=== PATIENT | female | born 1995 | race Hispanic/Latino ===

== ENCOUNTER → 2020-07-26 16:48 | Outpatient (CLI) | payer MEDICAID, SELFPAY ==
[2020-07-26 17:17] LABS: Absolute Lymphocyte Count 2.31 X10^3/uL (0.83-4.51); Absolute Neutrophil Count 7.1 X10^3/uL (2.0-7.7); Basophil# 0.02 X10^3/uL; Basophil% 0.2 % (0-1); Eosinophil# 0.12 X10^3/uL; Eosinophils% 1.2 % (0-5); Hemoglobin 11.1 g/dL (12.0-15.0); Lymphocyte # 2.31 X10^3/ul (4.0); Lymphocyte % 22.4 % (19-41); Mean Corp Hgb Conc 31.7 g/dL (32-36); Mean Corpuscular Hgb 28.3 pg (27.0-32.0); Mean Corpuscular Volume 89.3 fL (81-99); Mean Platelet Vol. 8.6 fl (6.2-12.0); Monocyte% 6.8 % (0-10); NRBC Flagged by Analyzer 0 % (0-5); Neutrophil # 7.13 X10^3/uL (2.7-7.7); Neutrophil % 69.1 % (47-70); Platelet Count 360 K/mm3 (150-450); RBC Distribution Width CV 13.1 % (11.6-14.6); RBC Distribution Width SD 42.5 fl (35.1-43.9); Red Blood Count 3.92 M/mm3 (4.2-5.4); White Blood Count 10.3 K/mm3 (4.4-11.0)
[2020-07-27 13:09] LABS: HIV - WCH Non-Reactive (Nonreactive); Hepatitis B Surface Antigen Non-Reactive (Nonreactive); Hepatitis C Antibody Non-Reactive (Nonreactive); Rubella IgG Reactive (Nonreactive)
[2020-07-29 02:34] LABS: Prenatal RPR NONREACTIVE (NONREACTIVE)
== END ==
PROVIDERS: Visit Provider Obstetrics & Gynecology
DX: Z34.82 Encounter for supervision of other normal pregnancy, second trimester (principal)
CPT/HCPCS: 36415; 85025; 86703; 86762; 86803; 87086; 87088; 87340

== ENCOUNTER → 2020-10-21 | Outpatient (CLI) | payer MEDICAID, SELFPAY ==
[2020-10-21 13:45] LABS: Glucose Challenge Gest 1H 50g 89 mg/dL (70-140)
[2020-10-21 13:47] LABS: Hematocrit 32.3 % (37-47); Hemoglobin 10.5 g/dL (12.0-15.0); Mean Corp Hgb Conc 32.5 g/dL (32-36); Mean Corpuscular Hgb 29.7 pg (27.0-32.0); Mean Corpuscular Volume 91.2 fL (81-99); Mean Platelet Vol. 9.1 fl (6.2-12.0); Platelet Count 372 K/mm3 (150-450); RBC Distribution Width CV 13.2 % (11.6-14.6); RBC Distribution Width SD 44.5 fl (35.1-43.9); Red Blood Count 3.54 M/mm3 (4.2-5.4); White Blood Count 10.4 K/mm3 (4.4-11.0)
== END | disposition home or self-care (01) ==
LOC: WOBLAB 11:13
PROVIDERS: Visit Provider Obstetrics & Gynecology
DX: Z34.82 Encounter for supervision of other normal pregnancy, second trimester (principal)
CPT/HCPCS: 36415; 82950; 85027

== ENCOUNTER → 2020-12-30 14:25 | Outpatient (CLI) | payer MEDICAID, SELFPAY ==
[2021-01-03 20:08] LABS: Chlamydia By Nucleic Acid AMP Positive (Negative)
[2021-01-03 20:43] LABS: Gonococcus By Nucleic Acid AMP Negative (Negative)
[2021-01-04 18:52] LABS: HPV Reflexed? NOT INDICATED
== END ==
PROVIDERS: Visit Provider Obstetrics & Gynecology
DX: Z34.83 Encounter for supervision of other normal pregnancy, third trimester (principal); Z36.85 Encounter for antenatal screening for Streptococcus B
CPT/HCPCS: 87081; 87491; 87591; 88175; G0145

== ENCOUNTER 2021-01-20 15:55 | Inpatient (IN) | payer MEDICAID, SELFPAY ==
[2021-01-20] VITALS (12 sets, daily range): BP systolic 109–160; BP diastolic 55–74; PULSE 87–97; TEMP 36.4–36.8; O2SAT 100; BMI 33.0
[2021-01-20] MEDS: Lactated Ringers 1,000 ML 50 ML IV (16:25)
[2021-01-20 16:45] LABS: Absolute Lymphocyte Count 1.55 X10^3/uL (0.83-4.51); Absolute Neutrophil Count 6.5 X10^3/uL (2.0-7.7); Basophil# 0.01 X10^3/uL; Basophil% 0.1 % (0-1); Eosinophil# 0.06 X10^3/uL; Eosinophils% 0.7 % (0-5); Hematocrit 34.5 % (37-47); Hemoglobin 11.2 g/dL (12.0-15.0); Lymphocyte # 1.55 X10^3/ul (0.83-4.51); Lymphocyte % 17.2 % (19-41); Mean Corp Hgb Conc 32.5 g/dL (32-36); Mean Corpuscular Hgb 29.6 pg (27.0-32.0); Mean Corpuscular Volume 91.3 fL (81-99); Monocyte# 0.87 X10^3/uL; Monocyte% 9.6 % (0-10); NRBC Flagged by Analyzer 0 % (0-5); Neutrophil # 6.45 X10^3/uL (2.7-7.7); Neutrophil % 71.4 % (47-70); Platelet Count 241 K/mm3 (150-450); Red Blood Count 3.78 M/mm3 (4.2-5.4)
[2021-01-20 16:52] LABS: Amphetamine Urine VISTA NEGATIVE (<1000 ng/mL); Barbiturate Urine VISTA NEGATIVE (< 200 ng/mL); Benzodiazepine Urine VISTA NEGATIVE (< 200 ng/mL); Cocaine Urine VISTA NEGATIVE (< 300 ng/mL); Ecstacy Urine VISTA NEGATIVE (< 500 ng/mL); Methadone Urine VISTA NEGATIVE (< 300 ng/mL); PCP Urine VISTA NEGATIVE (< 25 ng/mL); THC Urine VISTA NEGATIVE (< 50 ng/mL); Vista UDS pH Range 6
[2021-01-20] MEDS: Oxytocin 30 units/NS 500 ml 30 UNITS/500 ML IV.SOLN IV (17:16)
--- NOTE | 2021-01-20 19:11 | PCM.HP.BLA ---
History and Physical Date of Admission: 01/20/21 Chief complaint: Induction of labor at term History of present illness: 25-year-old G4, P1 at 39 weeks and 0 days with AVA: 01/27/2021 by LMP arrives for induction of labor at term. Denies headache, chest pain, shortness of breath, nausea vomiting, right upper quadrant pain. Patient states good movement Obstetric history: G1: SAB 10 weeks G2: 40 weeks G3: SAB G4: Current Past medical history: Asthma Medications: vitamin Past surgical history: [place] tooth extraction Allergies: Penicillin Social history: Former smoker, denies alcohol or drug use Family history: Denies history DVT or PE Review of systems: Besides above pertinent positives a full review of systems was performed and was found to be negative Physical exam: Vital signs: Blood pressure 132/67 pulse 93 temperature 98.1 General: Normal-appearing no acute distress HEENT: Normocephalic atraumatic no cervical of adenopathy Cardiac/respiratory: No use of accessory muscles, nonlabored breathing Abdomen: Soft, nontender, gravid Extremities: No peripheral edema normal peripheral pulses Psych: Normal affect normal demeanor nonpressured speech Labs: White blood cell count 9 hemoglobin 11.2 hematocrit 34.5% platelets 241. Blood type B+ Assessment plan: 25-year-old G4, P1 at 39 weeks and 0 days for induction of labor at term Admit labor and delivery CEFM GBS negative Pitocin induction for AROM Anesthesia to see
[2021-01-20 21:46] LABS: Chlamydia Trachomatis by PCR Negative (Negative); Probe Check PASS; Specimen Processing Control PASS
[2021-01-20 21:47] LABS: Sample Adequacy Control PASS
--- NOTE | 2021-01-20 22:35 | PN.OBGYN_ITS ---
Subjective Subjective Patient resting in bed, feeling strong contractions going natural Objective Data Objective Data Vital Signs: Vital Signs Temp Pulse BP Pulse Ox 98.2 F 90 121/74 H 100 01/20/21 21:51 01/20/21 21:54 01/20/21 21:54 01/20/21 21:50 Weight: 207 lb 10.807 oz Body Mass Index (BMI) 33.0 Intake & Output: Intake and Output for Last 24 Hours 01/18/21 01/19/21 01/20/21 23:59 23:59 23:59 Intake Total 335.77 / 335.77 Output Total 650 / 650 Balance -314.23 / -314.23 Lab / Micro Data Result Diagrams: 01/20/21 16:25 Labs: Laboratory Results - last 24 hr 01/20/21 01/20/21 01/20/21 16:25 16:25 16:30 WBC 9.0 RBC 3.78 L Hgb 11.2 L Hct 34.5 L MCV 91.3 MCH 29.6 MCHC 32.5 RDW Std Deviation 47.0 H RDW Coeff of Kate 14.0 Plt Count 241 MPV 9.0 Immature Gran % (Auto) 1.000 H Neut % (Auto) 71.4 H Lymph % (Auto) 17.2 L [place] % (Auto) 9.6 Eos % (Auto) 0.7 Baso % (Auto) 0.1 Absolute Neuts (auto) 6.5 Absolute Lymphs (auto) 1.55 Nucleated RBC % 0 Urine Opiates Screen NEGATIVE Urine Methadone Screen NEGATIVE Ur Barbiturates Screen NEGATIVE Ur Phencyclidine Scrn NEGATIVE Ur Amphetamines Screen NEGATIVE U Methamphetamin-MDMA NEGATIVE U Benzodiazepines Scrn NEGATIVE Urine Cocaine Screen NEGATIVE U Cannabinoids Screen NEGATIVE Ur Drug Screen Comment Chlam trachomat DNA PCR Blood Type B POSITIVE Antibody Screen NEGATIVE 01/20/21 19:30 WBC RBC Hgb Hct MCV MCH MCHC RDW Std Deviation RDW Coeff of Kate Plt Count MPV Immature Gran % (Auto) Neut % (Auto) Lymph % (Auto) [place] % (Auto) Eos % (Auto) Baso % (Auto) Absolute Neuts (auto) Absolute Lymphs (auto) Nucleated RBC % Urine Opiates Screen Urine Methadone Screen Ur Barbiturates Screen Ur Phencyclidine Scrn Ur Amphetamines Screen U Methamphetamin-MDMA U Benzodiazepines Scrn Urine Cocaine Screen U Cannabinoids Screen Ur Drug Screen Comment Chlam trachomat DNA PCR Negative Blood Type Antibody Screen Micro: Microbiology 01/20/21 16:20 Mucosa - Nose SARS-CoV-2 Antigen (Rapid) - Final Physical Exam Const alert, oriented x3 and no apparent distress HEENT normocephalic Head and Scalp: atraumatic Neck full ROM Resp normal respiratory effort, no retractions and no use of accessory muscles Narrative: Cervical exam: 4/80/-2. AROM clear fluid Extremity normal to inspection, full ROM and no clubbing, cyanosis or edema Skin no rashes or lesions noted Psych mental status grossly normal, affect normal, speech normal and activity/motor behavior normal NST FHR Rate Baby A Baseline: 130 Variability:: Moderate Accelerations:: 15 x 15 Decelerations:: None FHR Category:: Category I Uterine Activity:: Every 2 minutes Assessment & Plan (1) : PLAN: Patient feeling contractions. Seen and examined, AROM clear fluid. We will continue current management
[2021-01-20] MEDS: Lactated Ringers 1,000 ML 200 ML IV (23:20)
[2021-01-21] VITALS (47 sets, daily range): BP systolic 97–150; BP diastolic 50–81; PULSE 80–99; RESP 14–18; TEMP 36.3–37.1; O2SAT 80–100
[2021-01-21] MEDS: Lactated Ringers 500 ML 999 ML IV (01:59)
[2021-01-21] MEDS: fentaNYL-bupivacaine (epidural) 100 ML BAG EPIDURAL (02:50)
[2021-01-21] MEDS: Lactated Ringers 1,000 ML 200 ML IV (04:51)
[2021-01-21] MEDS: Levonorgestrel IUD (Liletta) 1 EACH INTRA-UTER (06:10)
[2021-01-21] MEDS: Oxytocin 30 units/NS 500 ml 30 UNITS/500 ML IV.SOLN 334 UNITS IV (06:10)
--- NOTE | 2021-01-21 06:32 | EX.PCM.OBRPT ---
Vaginal Delivery Findings Description of Procedure: Procedure: Normal spontaneous vaginal delivery, immediate IUD placement Normal spontaneous vaginal delivery of a viable female , vertex EVAN. Head and shoulders delivered with ease. Cord cut and clamped. Baby handed off to nursing. Placenta delivered via cord traction and fundal massage. Immediately after the placenta Liletta IUD was placed at the fundus. No lacerations noted. EBL 300 cc. Apgars 8/9
--- NOTE | 2021-01-21 08:21 | NURSING ---
0820 Steele Cath removed. emptied for 600ml, patient tolerated well
--- NOTE | 2021-01-21 12:07 | NURSING ---
Student charting reviewed by MAU Galloway,AU instructor.
--- NOTE | 2021-01-21 13:55 | NURSING ---
Reviewed and agree withAU student charting-Laverne RN, AU instructor
[2021-01-21] MEDS: Acetaminophen 500 MG Tablet 1000 MG PO ×2 (14:04→20:50)
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
[2021-01-21] MEDS: Ibuprofen 600 MG Tablet PO (17:11)
[2021-01-21] MEDS: Senna/Docusate Sodium 1 Tablet PO (20:50)
[2021-01-22] MEDS: Ibuprofen 600 MG Tablet PO ×2 (03:29→14:00)
[2021-01-22 03:30] VITALS: BP 114/63; PULSE 73; RESP 18; TEMP 36.8; O2SAT 97
[2021-01-22 08:45] VITALS: BP 113/63; PULSE 79; RESP 16; TEMP 36.8; O2SAT 98
--- NOTE | 2021-01-22 09:14 | PCM.PN.OB ---
Subjective Subjective No issues overnight. Out of bed, ambulating, voiding without difficulty. Denies heavy lochia. She is nursing. She is concerned about infant bilirubin level. Repeat level due this afternoon. Objective Data Objective Data Vital Signs: Vital Signs Temp Pulse Resp BP Pulse Ox 98.3 F 73 18 114/63 97 01/22/21 03:30 01/22/21 03:30 01/22/21 03:30 01/22/21 03:30 01/22/21 03:30 Oxygen Delivery Method Room Air Weight: 94.2 kg Body Mass Index (BMI) 33.0 Intake & Output: Intake and Output for Last 24 Hours 01/20/21 01/21/21 01/22/21 23:59 23:59 23:59 Intake Total 969.10 / 969.10 2344.50 / 2344.50 Output Total 650 / 650 800 / 800 Balance 319.10 / 319.10 1544.50 / 1544.50 Lab / Micro Data Result Diagrams: 01/20/21 16:25 Micro: Microbiology 01/20/21 16:20 Mucosa - Nose SARS-CoV-2 Antigen (Rapid) - Final Physical Exam Const alert, oriented x3 and no apparent distress Resp normal respiratory effort, normal air movement and clear to auscultation bilaterally Cardio regular rate, regular rhythm, S1 normal heart sound and S2 normal heart sound GI normal to inspection, nondistended, normoactive bowel sounds, soft to palpation, non-tender and non-distended Manual OB Exam: other lochia scant Uterus Palpation: uterus fundus firm Extremity no calf tenderness Assessment & Plan (1) (spontaneous vaginal delivery): PLAN: Rh positive Routine care Consider d/c later today pending bilirubin levels
--- NOTE | 2021-01-22 09:21 | PCM.DC ---
Discharge Instructions Diet Discharge Diet: No restrictions Activity May resume sexual activity in: 4-6 weeks Dressing / Incision Call your doctor if you observe: Fever of 101 or Higher, Using more than one pad per hour, Shortness of breath, Chest pain, Calf discomfort, Uncontrolled pain and - (Persistent or severe headache) Follow Up Care Please Follow Up With: Justa Merlos MD When: 3 weeks for telehealth follow up 6 weeks for visit Test Results: Test results from this visit will be discussed in further detail at your follow-up appointment, if applicable. Discharge Plan Admission Admit Date/Time: 01/20/21 15:55 Primary Reason for Your Visit: Vaginal delivery Attending Provider: Jeanne Feldamn Primary Care Provider: Care Physician,No Primary Instructions Patient Instructions: After a Vaginal Discharge Orders/Prescriptions Prescriptions: New ibuprofen 600 mg tablet 600 mg PO Q8H PRN (Reason: pain) Qty: 30 RF: 0 Continued Prena-Tab 65 mg iron- 1 mg Tablet 1 tab PO DAILY RF: 0 Discontinued ferrous sulfate [Iron (ferrous sulfate)] 325 mg (65 mg iron) Tablet 65 mg PO DAILY RF: 0 Referrals / Follow Up: Michoacano Feldman MD [STAFF PHYSICIAN] - Care Physician,No Primary [Primary Care Provider] - Disposition Disposition (needs filled in before D/C Order can be placed): Home, self care
[2021-01-22 14:00] VITALS: BP 106/67; PULSE 74; RESP 14; TEMP 36.6; O2SAT 97
== END 2021-01-22 15:45 | disposition home or self-care (01) | DRG 560 ==
PROVIDERS: Obstetrics & Gynecology; Admitting Provider Student in an Organized Health Care Education/Training Program; Referring Provider Student in an Organized Health Care Education/Training Program; Visit Provider Student in an Organized Health Care Education/Training Program
DX: O99.52 Diseases of the respiratory system complicating childbirth (principal); J45.909 Unspecified asthma, uncomplicated; Z20.822 Contact with and (suspected) exposure to COVID-19; Z30.430 Encounter for insertion of intrauterine contraceptive device; Z3A.39 39 weeks gestation of pregnancy; Z37.0 Single live birth; Z87.891 Personal history of nicotine dependence
CPT/HCPCS: 59025; 59050; 80307; 85025; 86850; 86900; 86901; 87426; 87491; 99218; J7120; G0378

== ENCOUNTER 2021-11-11 11:13 | Outpatient (CLI) | payer MEDICAID, SELFPAY ==
[2021-11-11 13:47] LABS: Estradiol 87.6 pg/mL; Luteinizing Hormone 9.7 mIU/mL; Prolactin 3.1 ng/mL; T4 Free Direct 0.88 ng/dL (0.76-1.46); Thyroid Stim Hormone (TSH) 1.38 uIU/mL (0.358-3.74)
[2021-11-14 18:07] LABS: Chlamydia By Nucleic Acid AMP Negative (Negative)
[2021-11-14 21:22] LABS: Gonococcus By Nucleic Acid AMP Negative (Negative)
== END 2021-11-11 23:59 | disposition home or self-care (01) ==
LOC: WOBLAB 11:14
PROVIDERS: Visit Provider Obstetrics & Gynecology
DX: Z11.3 Encounter for screening for infections with a predominantly sexual mode of transmission (principal); N93.9 Abnormal uterine and vaginal bleeding, unspecified; L68.0 Hirsutism
CPT/HCPCS: 36415; 82670; 83001; 83002; 84146; 84402; 84439; 84443; 87086; 87088; 87491; 87591

== ENCOUNTER → 2022-12-01 | Outpatient (CLI) | payer MEDICAID, SELFPAY ==
[2022-12-01 16:36] LABS: Absolute Lymphocyte Count 2.61 X10^3/uL (0.83-4.51); Absolute Neutrophil Count 4.5 X10^3/uL (2.0-7.7); Basophil# 0.02 X10^3/uL; Basophil% 0.2 % (0-1); Eosinophil# 0.22 X10^3/uL; Eosinophils% 2.7 % (0-5); Hematocrit 37.2 % (37-47); Hemoglobin 12.1 g/dL (12.0-15.0); Lymphocyte # 2.61 X10^3/ul (0.83-4.51); Lymphocyte % 32.5 % (19-41); Mean Corp Hgb Conc 32.5 g/dL (32-36); Mean Corpuscular Hgb 28.9 pg (27.0-32.0); Mean Platelet Vol. 8.4 fl (6.2-12.0); Monocyte# 0.65 X10^3/uL; Monocyte% 8.1 % (0-10); NRBC Flagged by Analyzer 0 % (0-5); Neutrophil # 4.49 X10^3/uL (2.7-7.7); Neutrophil % 56.1 % (47-70); Platelet Count 394 K/mm3 (150-450); RBC Distribution Width CV 13.9 % (11.6-14.6); RBC Distribution Width SD 45.1 fl (35.1-43.9); Red Blood Count 4.18 M/mm3 (4.2-5.4)
[2022-12-01 17:40] LABS: HIV - WCH Non-Reactive (Nonreactive); Hepatitis B Surface Antigen Non-Reactive (Nonreactive); Hepatitis C Antibody Non-Reactive (Nonreactive); Rubella IgG Reactive (Nonreactive); Syphilis Antibodies Non-reactive
[2022-12-03 08:31] LABS: V-Zoster IgG (Immunity) < 135 index (Immune >165)
[2022-12-08 20:37] LABS: HPV Reflexed? NOT INDICATED
== END | disposition home or self-care (01) ==
PROVIDERS: Visit Provider Obstetrics & Gynecology
DX: Z34.81 Encounter for supervision of other normal pregnancy, first trimester (principal)
CPT/HCPCS: 36415; 85025; 86703; 86762; 86780; 86787; 86803; 87086; 87088; 87340; 88175; G0145

== ENCOUNTER → 2023-04-06 | Outpatient (CLI) | payer MEDICAID, SELFPAY ==
[2023-04-06 11:00] LABS: Absolute Lymphocyte Count 1.89 X10^3/uL (0.83-4.51); Absolute Neutrophil Count 7.4 X10^3/uL (2.0-7.7); Basophil# 0.02 X10^3/uL; Basophil% 0.2 % (0-1); Eosinophil# 0.15 X10^3/uL; Eosinophils% 1.5 % (0-5); Hematocrit 34.5 % (37-47); Hemoglobin 10.9 g/dL (12.0-15.0); Lymphocyte # 1.89 X10^3/ul (0.83-4.51); Lymphocyte % 18.6 % (19-41); Mean Corp Hgb Conc 31.6 g/dL (32-36); Mean Corpuscular Hgb 29.2 pg (27.0-32.0); Mean Corpuscular Volume 92.5 fL (81-99); Mean Platelet Vol. 8.9 fl (6.2-12.0); Monocyte# 0.64 X10^3/uL; Monocyte% 6.3 % (0-10); NRBC Flagged by Analyzer 0 % (0-5); Neutrophil % 72.7 % (47-70); Platelet Count 310 K/mm3 (150-450); RBC Distribution Width CV 13.4 % (11.6-14.6); RBC Distribution Width SD 45.5 fl (35.1-43.9); Red Blood Count 3.73 M/mm3 (4.2-5.4); White Blood Count 10.2 K/mm3 (4.4-11.0)
[2023-04-06 11:07] LABS: Glucose Challenge Gest 1H 50g 84 mg/dL (70-140)
[2023-04-06 11:31] LABS: Syphilis Antibodies Non-reactive
== END | disposition home or self-care (01) ==
LOC: WOBLAB 10:19
PROVIDERS: Visit Provider Obstetrics & Gynecology
DX: Z34.82 Encounter for supervision of other normal pregnancy, second trimester (principal); Z3A.00 Weeks of gestation of pregnancy not specified
CPT/HCPCS: 36415; 82950; 85025; 86780

== ENCOUNTER 2023-10-19 18:03 | Emergency (ER) | payer MEDICAID, SELFPAY ==
[2023-10-19 18:04] VITALS: BP 130/82; PULSE 83; RESP 16; TEMP 36.1; O2SAT 98; BMI 35.0
--- OUTSIDE RECORDS SUMMARY | 2023-10-19 19:10 | XMS RPT_ITS | CCD ---
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 delivery, the amount and appearance of lochia is often similar to a menstrual period. ?Over the next few weeks, it will gradually decrease to a dry, yellow-brown discharge. ?For most women, lochia stops completely by 4 6 weeks after delivery. Vaginal bleeding can vary from woman to woman. Change your sanitary pads frequently. Watch for any changes in your flow, such as: ?A sudden increase in volume. ?A change in color. ?Large blood clots. If you pass a blood clot from your vagina, save it and call your health care provider to discuss. Do not flush blood clots down the toilet before talking with your health care provider. Do not use tampons or douches until your health care provider says this is safe. If you are not , your period should return 6 8 weeks after delivery. If you are feeding your child breast milk only (exclusive ), your period may not return until you stop . Perineal care Keep the area between the vagina and the anus (perineum) clean and dry as told by your health care provider. Use medicated pads and pain-relieving sprays and creams as directed. If you had a cut in the perineum (episiotomy) or a tear in the vagina, check the area for signs of infection until you are healed. Check for: ?More redness, swelling, or pain. ?Fluid or blood coming from the cut or tear. ?Warmth. ?Pus or a bad smell. You may be given a squirt bottle to use instead of wiping to clean the perineum area after you go to the bathroom. As you start healing, you may use the squirt bottle before wiping yourself. Make sure to wipe gently. To relieve pain caused by an episiotomy, a tear in the vagina, or swollen veins in the anus (hemorrhoids), try taking a warm sitz bath 2 3 times a day. A sitz bath is a warm water bath that is taken while you are sitting down. The water should only come up to your hips and should cover your buttocks. Breast care Within the first few days after delivery, your breasts may feel heavy, full, and uncomfortable (breast engorgement). Milk may also leak from your breasts. Your health care provider can suggest ways to help relieve the discomfort. Breast engorgement should go away within a few days. If you are : ?Wear a bra that supports your breasts and fits you well. ?Keep your nipples clean and dry. Apply creams and ointments as told by your health care provider. ?You may need to use breast pads to absorb milk that leaks from your breasts. ?You may have uterine contractions every time you breastfeed for up to several weeks after delivery. Uterine contractions help your uterus return to its normal size. ?If you have any problems with , work with your health care provider or c consultant. If you are not : ?Avoid touching your breasts a lot. Doing this can make your breasts produce more milk. ?Wear a good-fitting bra and use cold packs to help with swelling. ?Do not squeeze out (express) milk. This causes you to make more milk. Intimacy and sexuality Ask your health care provider when you can engage in sexual activity. This may depend on: ?Your risk of infection. ?How fast you are healing. ?Your comfort and desire to engage in sexual activity. You are able to get after delivery, even if you have not had your period. If desired, talk with your health care provider about methods of control (contraception). Medicines Take rayd-ehr-uaxubmz and prescription medicines only as told by your health care provider. If you were prescribed an antibiotic medicine, take it as told by your health care provider. Do not stop taking the antibiotic even if you start to feel better. Activity Gradually return to your normal activities as told by your health care provider. Ask your health care provider what activities are safe for you. Rest as much as possible. Try to rest or take a nap while your baby is sleeping. Eating and drinking Drink enough fluid to keep your urine pale yellow. Eat high-fiber foods every day. These may help prevent or relieve constipation. High-fiber foods include: ?Whole grain cereals and breads. ?Brown rice. ?Beans. ?Fresh fruits and vegetables. Do not try to lose weight quickly by cutting back on calories. Take your vitamins until your checkup or until your health care provider tells you it is okay to stop. Lifestyle Do not use any products that contain nicotine or tobacco, such as cigarettes and e-cigarettes. If you need help quitting, ask your health care provider. Do not drink alcohol, especially if you are . General instructions Keep all follow-up visits for you and your baby as told by your health care provider. Most women visit their health care provider for a checkup within the first 3 6 weeks after delivery. Contact a health care provider if: You feel unable to cope with the changes that your child brings to your life, and these feelings do not go away. You feel unusually sad or worried. Your breasts become red, painful, or hard. You have a fever. You have trouble holding urine or keeping urine from leaking. You have little or no interest in activities you used to enjoy. You have not breastfed at all and you have not had a menstrual period for 12 weeks after delivery. You have stopped and you have not had a menstrual period for 12 weeks after you stopped . You have questions about caring for yourself or your baby. You pass a blood clot from your vagina. Get help right away if: You have chest pain. You have difficulty breathing. You have sudden, severe leg pain. You have severe pain or cramping in your lower abdomen. You bleed from your vagina so much that you fill more than one sanitary pad in one hour. Bleeding should not be heavier than your heaviest period. You develop a severe headache. You faint. You have blurred vision or spots in your vision. You have bad-smelling vaginal discharge. You have thoughts about hurting yourself or your baby. If you ever feel like you may hurt yourself or others, or have thoughts about taking your own life, get help right away. You can go to the nearest emergency department or call: Your local emergency services (911 in the [place] A suicide crisis helpline, such as the National Suicide Prevention Lifeline at . This is open 24 hours a day. Summary The period of time right after you deliver your up to 6 12 weeks after delivery is called the period. Gradually return to your normal activities as told by your health care provider. Keep all follow-up visits for you and your baby as told by your health care provider. This information is not intended to replace advice given to you by your health care provider. Make sure you discuss any questions you have with your health care provider. Document Released: 06/02/2008 Document Revised: 08/09/2018 Document Reviewed: 05/20/2018 [employer] Patient Education 2020 [employer]. Follow Up Care 07/26/2023 08:13:10 With:TAWANDA CALLAHAN MD Address: [address] [place] [address] [facility] [phone]- [phone] When: Unknown Comments:Please schedule a followup next week for blood pressure check and checkup with me in 3 weeks [facility] Evaluation + Plan note 07-26-2023 Note Date & Type Note Facility [facility] ADMISSION HISTORY AN D PHYSICIAL CHIEF COMPLAINT: Regular painful contractions HISTORY OF PRESENT ILLNESS: 3 para 2 at 40 weeks 2 days estimated gestational age with painful regular contractions since this morning. course only remarkable for moderately elevated blood pressures over the last 2 weeks but with normal PIH labs. No signs of preeclampsia. No signs of SROM or bleeding. GBS screening was negative REVIEW OF SYSTEMS: Regular painful contractions ACTIVE PROBLEMS: (4) Body mass index 30+ - obesity ([id number]) Encounter for supervision of normal in multigravida in third trimester ([id number]) ([id number]) ([id number]) MEDICATIONS: Active Inpt Meds: None Active PRN Meds: Lactated Ringers Infusion (LR 500 mL Bolus) Start: 07/26/23 8:35:00 EST, Dose = 500 mL, Soln, IV Bolus, AsDirected, PRN, Other (see order comments), Rate: 999 mL/hr, hour(s), 07/26/23 8:35:00 EST carboprost (Hemabate) Start: 07/26/23 8:35:00 EST, Dose = 250 mcg, = 1 mL, Intramuscular, Once, PRN, Other (see order comments), 07/26/23 8:35:00 EST citric acid-sodium citrate (Bicitra) Start: 07/26/23 8:35:00 EST, Dose = 30 mL, Soln, Oral, AsDirected, PRN, Gastric Upset, 07/26/23 8:35:00 EST lidocaine (Xylocaine HCl 1% injectable solution) Start: 07/26/23 8:35:00 EST, Dose = 20 mg, = 2 mL, Perineum, AsDirected, PRN, to perineal sutures, 1 dose(s), Stop: Limited # of times, 07/26/23 8:35:00 EST methylergonovine (Methergine) Start: 07/26/23 8:35:00 EST, Dose = 0.2 mg, = 1 mL, Intramuscular, Once, PRN, Other (see order comments), 07/26/23 8:35:00 EST miSOPROStol (Cytotec) Start: 07/26/23 8:35:00 EST, Dose = 1,000 mcg, = 5 tab(s), Rectal, Once, PRN, Other (see order comments), 0, 07/26/23:35:00 EST ondansetron (Zofran) Start: 07/26/23 8:35:00 EST, Dose = 4 mg, = 2 mL, IV Push, q4h, PRN, Nausea, 07/26/23 8:35:00 EST oxytocin (Pitocin) Start: 07/26/23 8:35:00 EST, Dose = 20 unit(s), = 2 mL, Intramuscular, Once, PRN, Other (see order comments), 07/26/23 8:35:00 EST terbutaline (Brethine) Start: 07/26/23 8:35:00 EST, Dose = 0.25 mg, = 0.25 mL, Subcutaneous, AsDirected, PRN, Other (see order comments), 07/26/23 8:35:00 EST tranexamic acid (tranexamic acid 1 g / 100 mL 0.7% NaCl PMX) Start: 07/26/23 8:35:00 EST, Dose = 1 gram(s), = 100 mL, IV Piggyback, AsDirected, PRN, Other (see order comments), Rate: 300 mL/hr, Infuse over: 20 minute(s), 0, 07/26/23 8:35:00 EST One Time Meds: None Active IV Meds: Lactated Ringers Infusion 1,000 mL (LR 1,000 mL) Start: 07/26/23 8:35:00 EST, Rate: 125 mL/hr, 07/26/23 8:35:00 EST oxytocin 20 unit(s) + LR Premix Diluent 1,000 mL (Oxytocin for IV (mL/hr) 20 unit(s) + LR Premix Diluent 1,000 mL) Start: 07/26/23 8:35:00 EST, Rate: 999 mL/hr, 07/26/23 8:35:00 EST ALLERGIES: (2) Kiwi fruit penicillin FAMILY HISTORY: Not significant for this admission SOCIAL HISTORY: Non-smoker no toxic habits no alcohol use stable home PHYSICAL EXAM: VITALS: ZlnlokSvbtKJVzqxjZXZmG9HUY9QvgmPq(kg) 07/26 08:31----75------07/26108.0 07/26 08:27----77------ 07/26 08:13----66------ 24 Hr Tmax: No Data Available 36 Hr Tmax: No Data Available Vital Signs are the last 5 in the past 48 hours. Weights display the last 5 within 7 days. Initial Wt: 07/26 108.0 kg 238 lb Current Wt: 07/26 108.0 kg 238 lb GENERAL: Appears well except uncomfortable with contractions HEENT: Normocephalic CARDIOVASCULAR: Regular rate and rhythm blood pressure elevated on admission 170/89 now currently in the 140s over 80s RESPIRATORY: Clear bilaterally ABDOMEN: Gravid consistent with dating vertex presentation CERVIX: 5 cm dilated 90% effaced 0 station EXREMETIES: Mild lower extremity edema NEUROLOGICAL: Intact PSYCHIATRIC: No signs of acute depression or anxiety LABS: 36hr Labs 07/26 839 Group B Strep,See Flowsheet Group B Strep Date Performed1:[id number]:0:0 07/26 836 Creatinine Lvl (s)0.74 Albumin Level3.0L Alk Tjee292 Bili Total1.0 BUN12 Calcium Lvl9.8 Scnzkznw212 PG065H Glucose Level85 Potassium Level4.0 Sodium Zibxq852A Total Protein7.2 Uric Acid Lvl6.8H BUN/Creatinine Ratio16 Globulin4.2 A/G Ratio0.7L AST/SGOT21 ALT/SGPT21 Electrolyte Mcgmfpm93.0 GFR Non- Svkgmapo54 GFR Plmuntjf120 Hct38.7 Hgb12.7 MCH28.8 MCHC32.8L MCV87.9 MPV7.8 Zfagwawn044 RBC4.41 RDW13.9 WBC17.0H Lymphocyte %11.9 Monocyte %4.7 Neutrophil %82.9H Eosinophil %0.3 Basophil %0.2 Neutrophil, Qexpcbcj66.1H Lymphocyte, Absolute2.0 Monocyte, Absolute0.8 Eosinophil, Absolute0.1 Basophil, Absolute0.0 DIAGNOSTICS: heart rate tracing category 1. Regular contractions on toco monitor IMPRESSION: Active labor at term with modestly elevated blood pressures PLAN: PIH labs were sent. Anesthesia per patient request. Would not recommend tub secondary to elevated blood pressures. Expect . [facility] Clinical Note 07-26-2023 Note Date & Type Note Facility 07-26-2023 [facility] ADMISSION HISTORY AND PHYSICIAL CHIEF COMPLAINT: Regular painful contractions HISTORY OF PRESENT ILLNESS: 3 para 2 at 40 weeks 2 days estimated gestational age with painful regular contractions since this morning. course only remarkable for moderately elevated blood pressures over the last 2 weeks but with normal PIH labs. No signs of preeclampsia. No signs of SROM or bleeding. GBS screening was negative REVIEW OF SYSTEMS: Regular painful contractions ACTIVE PROBLEMS: (4) Body mass index 30+ - obesity ([id number]) Encounter for supervision of normal in multigravida in third trimester ([id number]) ([id number]) ([id number]) MEDICATIONS: Active Inpt Meds: None Active PRN Meds: Lactated Ringers Infusion (LR 500 mL Bolus) Start: 07/26/23 8:35:00 EST, Dose = 500 mL, Soln, IV Bolus, AsDirected, PRN, Other (see order comments), Rate: 999 mL/hr, hour(s), 07/26/23 8:35:00 EST carboprost (Hemabate) Start: 07/26/23 8:35:00 EST, Dose = 250 mcg, = 1 mL, Intramuscular, Once, PRN, Other (see order comments), 07/26/23 8:35:00 EST citric acid-sodium citrate (Bicitra) Start: 07/26/23 8:35:00 EST, Dose = 30 mL, Soln, Oral, AsDirected, PRN, Gastric Upset, 07/26/23 8:35:00 EST lidocaine (Xylocaine HCl 1% injectable solution) Start: 07/26/23 8:35:00 EST, Dose = 20 mg, = 2 mL, Perineum, AsDirected, PRN, to perineal sutures, 1 dose(s), Stop: Limited # of times, 07/26/23 8:35:00 EST methylergonovine (Methergine) Start: 07/26/23 8:35:00 EST, Dose = 0.2 mg, = 1 mL, Intramuscular, Once, PRN, Other (see order comments), 07/26/23 8:35:00 EST miSOPROStol (Cytotec) Start: 07/26/23 8:35:00 EST, Dose = 1,000 mcg, = 5 tab(s), Rectal, Once, PRN, Other (see order comments), 0, 07/26/23 8:35:00 EST ondansetron (Zofran) Start: 07/26/23 8:35:00 EST, Dose = 4 mg, = 2 mL, IV Push, q4h, PRN, Nausea, 07/26/23 8:35:00 EST oxytocin (Pitocin) Start: 07/26/23 8:35:00 EST, Dose = 20 unit(s), = 2 mL, Intramuscular, Once, PRN, Other (see order comments), 07/26/23 8:35:00 EST terbutaline (Brethine) Start: 07/26/23 8:35:00 EST, Dose = 0.25 mg, = 0.25 mL, Subcutaneous, AsDirected, PRN, Other (see order comments), 07/26/23 8:35:00 EST tranexamic acid (tranexamic acid 1 g / 100 mL 0.7% NaCl PMX) Start: 07/26/23 8:35:00 EST, Dose = 1 gram(s), = 100 mL, IV Piggyback, AsDirected, PRN, Other (see order comments), Rate: 300 mL/hr, Infuse over: 20 minute(s), 0, 07/26/23 8:35:00 EST One Time Meds: None Active IV Meds: Lactated Ringers Infusion 1,000 mL (LR 1,000 mL) Start: 07/26/23 8:35:00 EST, Rate: 125 mL/hr, 07/26/23 8:35:00 EST oxytocin 20 unit(s) + LR Premix Diluent 1,000 mL (Oxytocin for IV (mL/hr) 20 unit(s) + LR Premix Diluent 1,000 mL) Start: 07/26/23 8:35:00 EST, Rate: 999 mL/hr, 07/26/23 8:35:00 EST ALLERGIES: (2) Kiwi fruit penicillin FAMILY HISTORY: Not significant for this admission SOCIAL HISTORY: Non-smoker no toxic habits no alcohol use stable home PHYSICAL EXAM: VITALS: [id number]J6AuujNa(kg) 07/26 08:31----75------07/26108.0 07/26 08:27----77------ 07/26 08:13----66------ 24 Hr Tmax: No Data Available 36 Hr Tmax: No Data Available Vital Signs are the last 5 in the past 48 hours. Weights display the last 5 within 7 days. Initial Wt: 07/26 108.0 kg 238 lb Current Wt: 07/26 108.0 kg 238 lb GENERAL: Appears well except uncomfortable with contractions HEENT: Normocephalic CARDIOVASCULAR: Regular rate and rhythm blood pressure elevated on admission 170/89 now currently in the 140s over 80s RESPIRATORY: Clear bilaterally ABDOMEN: Gravid consistent with dating vertex presentation CERVIX: 5 cm dilated 90% effaced 0 station EXREMETIES: Mild lower extremity edema NEUROLOGICAL: Intact PSYCHIATRIC: No signs of acute depression or anxiety LABS: 36hr Labs 07/26 839 Group B Strep,See Flowsheet Group B Strep Date Performed1:[id number]: 0:0 07/26 836 Creatinine Lvl (s)0.74 Albumin Level3.0L Alk Zjtr842 Bili Total1.0 BUN12 Calcium Lvl9.8 Gbwcckzz129 KK341Z Glucose Level85 Potassium Level4.0 Sodium Rhjpv437B Total Protein7.2 Uric Acid Lvl6.8H BUN/Creatinine Ratio16 Globulin4.2 A/G Ratio0.7L AST/SGOT21 ALT/SGPT21 Electrolyte Zvpxxtf32.0 GFR Non- Jkschwjc12 GFR Nnxsoisk466 Hct38.7 Hgb12.7 MCH28.8 MCHC32.8L MCV87.9 MPV7.8 Mcucbjkl749 RBC4.41 RDW13.9 WBC17.0H Lymphocyte %11.9 Monocyte %4.7 Neutrophil %82.9H Eosinophil %0.3 Basophil %0.2 Neutrophil, Qtpzodkv61.1H Lymphocyte, Absolute2.0 Monocyte, Absolute0.8 Eosinophil, Absolute0.1 Basophil, Absolute0.0 DIAGNOSTICS: heart rate tracing category 1. Regular contractions on toco monitor IMPRESSION: Active labor at term with modestly elevated blood pressures PLAN: PIH labs were sent. Anesthesia per patient request. Would not recommend tub secondary to elevated blood pressures. Expect . Digitally Signed by TAWANDA CALLAHAN MD on 07/26/2023 10:12 AM [facility] Clinical Note 07-26-2023 Note Date & Type Note Facility 07-26-2023 Note Obstetrics progress note: Feeling more urge to push. Cervical exam anterior lip but not reducible. heart rate tracing reassuring. Expect fully dilated soon. Digitally Signed by TAWANDA CALLAHAN MD on 07/26/2023 10:05 AM [facility] Evaluation + Plan note Note Date & Type Note Facility Evaluation + Plan note Future Appointments Appointment Date:07/05/2023 09:45:00 AM Scheduled Provider:TAWANDA CALLAHAN MD Location:[facility] Appointment Type:[facility] OV OB Routine Follow Up [facility] Evaluation + Plan note Note Date & Type Note Facility Evaluation + Plan note Future Appointments Appointment Date:07/26/2023 10:45:00 AM Scheduled Provider:TAWANDA CALLAHAN MD Location:[facility] Appointment Type: OV OB Routine Follow Up [facility] Hospital course Narrative Note Date & Type Note Facility Hospital course Narrative No data available for this section [facility] Hospital Discharge instructions Note Date & Type Note Facility Hospital Discharge instructions No data available for this section [facility] Progress note Note Date & Type Note Facility Progress note No data available for this section [facility] Summary Purpose Family History No Family History Records FoundNo Family History Records FoundNo Family History Records FoundNo Family History Records FoundNo Family History Records Found No data available for this section No data available for this section No data available for this section No Family History Records Found Advance Directives No Advanced Directives Records FoundNo Advanced Directives Records FoundNo Advanced Directives Records FoundNo Advanced Directives Records FoundNo Advanced Directives Records FoundNo Advanced Directives Records Found Additional Source Comments INFORMATION SOURCE (unrecogn ized section and content) DATE CREATED AUTHOR AUTHOR'S ORGANIZ ATION 07/09/2020 [employer] DATE CREATED AUTHOR AUTHOR'S ORGANIZ ATION 08/27/2020 [facility] DATE CREATED AUTHOR AUTHOR'S ORGANIZ ATION 04/27/2022 [facility] DATE CREATED AUTHOR AUTHOR'S ORGANIZ ATION 12/02/2022 [facility] DATE CREATED AUTHOR AUTHOR'S ORGANIZ ATION 08/06/2023 [facility] ([place]) <item><item><item> Privacy Markings (unrecogniz ed section and content) Section Author: Summer Coleman PROHIBITION ON REDISCLOSURE OF CONFIDENTIAL INFORMATION This notice accompanies a disclosure of information concerning a client made to you with the consent of such client. Section Author: Summer Coleman PROHIBITION ON REDISCLOSURE OF CONFIDENTIAL INFORMATION This notice accompanies a disclosure of information concerning a client made to you with the consent of such client. Section Author: Summer Coleman PROHIBITION ON REDISCLOSURE OF CONFIDENTIAL INFORMATION This notice accompanies a disclosure of information concerning a client made to you with the consent of such client. Patient Care team informatio n (unrecognized section and content) Care Team Personnel Name: PHYSICIAN, NONE Position: Physician Member Role: Primary Care Physician Care Team Related Persons Name: LISA RAO Address: [address] [phone] [place] Name: MARCELO FLORES Care Team Personnel Name: PHYSICIAN, NONE Position: Physician Member Role: Primary Care Physician Care Team Related Persons Name: LISA RAO Address: [address] [phone] [place] Name: MARCELO FLORES Care Team Personnel Name: PHYSICIAN, NONE Position: Physician Member Role: Primary Care Physician Care Team Related Persons Name: JALEN, LISA Address: Home [address] [place], [place] [id number] [place] Name: CRAIG FLORES Address: Home [address] [place], [place] [phone] [place] Name: MARCELO FLORES FOR RECORDS PERTAINING TO PATIENTS WHO ARE OR HAVE BEEN ENROLLED IN A CHEMICAL DEPENDENCY/SUBSTANCEABUSE PROGRAM, SOME INFORMATION MAY BE OMITTED. This clinical summary was aggregated from multiple sources. Caution should be exercised in using it in the provision of clinical care. This summary normalizes information from multiple sources, and as a consequence, information in this document may materially change the coding, format and clinical context of patient data. In addition, data may be omitted in some cases. CLINICAL DECISIONS SHOULD BE BASED ON THE PRIMARY CLINICAL RECORDS. [facility] [employer] provides no warranty or guarantee of the accuracy or completeness of information in this document.
--- NOTE | 2023-10-19 23:04 | EX.ED.VIS.UR ---
HPI HPI - URI History of Present Illness Chief Complaint: Sore Throat Narrative Narrative: 28-year-old female presenting with her daughter at a concern for flu COVID. Patient has no mild cough and subjective fevers. No shortness of breath. No registered fevers at home. No chest pain. No nausea or vomiting. She does state that her throat hurts but has no trouble swallowing or breathing. ROS ROS ED Constitutional Constitutional ED: Reports chills, fever(s) and subjective; Denies sweats Eyes Eyes: Denies blurry vision or change in vision ENT ENT ED: Reports sore throat; Denies ear pain Cardiovascular Cardiovascular: Denies chest pain, palpitations or racing heartbeat Respiratory/Chest Respiratory/Chest: Denies cough, dyspnea or sputum Gastrointestinal Gastrointestinal: Denies abdominal pain, constipation, diarrhea, nausea or vomiting Genitourinary Genitourinary ED: Denies dysuria, hematuria or urinary frequency Musculoskeletal Musculoskeletal: Reports myalgias; Denies arthralgias or neck pain Integumentary Denies abscess, Abrasions or rash Neurologic Neurologic: Denies headache(s), paresthesias or weakness Psychiatric Psychiatric: Denies anxiety, depression, suicidal ideation or suicidal thoughts Endocrine Endocrinology: Denies polydipsia or polyuria PFSH PFSH Medical History Anxiety Asthma Chlamydia infection affecting Psychiatric disorder Home Medications vitamins-iron fumarate 65 mg iron-folic acid 1 mg tablet 1 tab PO DAILY 01/20/21 [History Last Taken 01/20/21 09:00 1 tab] ibuprofen 600 mg tablet 600 mg PO Q8H PRN pain #30 tabs 01/22/21 [Rx Last Taken Unknown] Allergy/AdvReac Type Severity Reaction Status Date / Time kiwi Allergy Anaphylaxis Verified 10/19/23 18:04 Penicillins Allergy Anaphylaxis Verified 10/19/23 18:04 Surgical History History of surgery Social History Smoking Status: Former smoker EXAM Physical Exam Const Vital Signs: 10/19/23 18:04 Temperature 96.9 F L Temperature Source Temporal Pulse Rate 83 Respiratory Rate 16 Blood Pressure 130/82 H Blood Pressure Mean 98 Pulse Ox 98 Oxygen Delivery Method Room Air Positive well nourished General Appearance ED: NAD; Negative for pallor HEENT normocephalic and atraumatic Throat: posterior oropharynx normal; Negative for tonsils abnormal Eyes PERRL and EOMs intact bilaterally Neck no lymphadenopathy, supple and no meningeal signs Resp normal respiratory effort and clear to auscultation bilaterally Auscultation: Negative for rales, rhonchi or wheezes Cardio Rate: regular rate Rhythm: regular rhythm GI non-tender Neuro oriented x3 and CN's II-XII intact bilaterally Sensorium / Orientation: alert Motor Exam: strength 5/5 throughout Psych mental status grossly normal Skin General Skin Exam: Negative for jaundice or pallor MDM MDM MDM Narrative Medical decision making narrative: Patient coming in with mild symptoms of viral syndrome. She is tested for COVID, influenza, RSV all negative. Today is the first day she has had symptoms and it is possible she is just not testing because she is orally. Vital signs stable she is afebrile. Physical exam unremarkable. Recommended patient to take Tylenol ibuprofen for fevers and chills. Offered Zofran but she states she is not nauseous. Patient discharged home in stable condition. Impression: 1. Viral syndrome Discharge Plan Triage Chief Complaint: Sore Throat ED Provider: Kei Alvarez Dx/Rx/DC Orders Instructions: ED Pharyngitis, Viral Prescriptions: No Action Prena-Tab 65 mg iron- 1 mg Tablet 1 tab PO DAILY ibuprofen 600 mg tablet 600 mg PO Q8H PRN (Reason: pain) Qty: 30 0RF Primary Care Provider: Care Physician,No Primary Referrals: Care Physician,No Primary [Primary Care Provider] - Disposition Disposition: Home, Self Care Discharge Date/Time: 10/19/23 20:12
== END 2023-10-19 20:12 | disposition home or self-care (01) ==
PROVIDERS: Emergency Provider Student in an Organized Health Care Education/Training Program; Visit Provider Student in an Organized Health Care Education/Training Program
DX: B34.9 Viral infection, unspecified (principal); Z11.52 Encounter for screening for COVID-19; Z87.891 Personal history of nicotine dependence
CPT/HCPCS: 87631; 99282

== ENCOUNTER 2024-09-11 16:19 | Emergency (ER) | payer MEDICAID, SELFPAY ==
[2024-09-11 16:20] VITALS: BP 174/87; PULSE 115; RESP 16; TEMP 37.8; O2SAT 98; BMI 33.6
--- NOTE | 2024-09-11 16:41 | EX.ED.DYSGE1 ---
HPI History of Present Illness Chief Complaint: Fever Narrative Narrative: Worsening myalgias since yesterday sore throat cough today. Using sinus cold medication last night. History of asthma. Denies sick contacts. She states she believes she received the influenza vaccine this year. Denies sick contacts. Reports intermittent wheezing. Denies history of gastric ulcers or kidney injury. [facility] Medical History Chlamydia infection affecting Asthma Psychiatric disorder Anxiety Home Medications ?Medication ?Instructions ?Recorded ?Last Taken ?Type oseltamivir 75 mg capsule (Tamiflu) 75 mg PO BID 5 days #10 caps 09/11/24 Unknown Rx prednisone 20 mg tablet 40 mg (2 x 20 mg) PO DAILY #8 tabs 09/11/24 Unknown Rx Allergy/AdvReac Type Severity Reaction Status Date / Time kiwi Allergy Anaphylaxis Verified 09/11/24 16:20 Penicillins Allergy Anaphylaxis Verified 09/11/24 16:20 Surgical History History of surgery Social History Smoking Status: Former smoker ROS ROS ED Constitutional Constitutional ED: Reports fever(s); Denies chills or sweats ENT ENT ED: Reports sore throat Cardiovascular Cardiovascular: Denies chest pain, leg edema, palpitations or racing heartbeat Respiratory/Chest Respiratory/Chest: Reports cough; Denies dyspnea or dyspnea on exertion Gastrointestinal Gastrointestinal: Denies abdominal pain, diarrhea, nausea or vomiting Genitourinary Genitourinary ED: Denies dysuria, hematuria or urinary frequency Musculoskeletal Musculoskeletal: Reports myalgias; Denies back pain, extremity pain or neck pain Integumentary Denies rash or wounds Neurologic Neurologic: Denies headache(s), paresthesias or weakness EXAM Physical Exam Const Vital Signs: 09/11/24 16:20 09/11/24 17:19 09/11/24 18:45 Temperature 100.1 F H 99.1 F Temperature Source Oral Pulse Rate 115 H 110 H Respiratory Rate 16 18 Respiratory Effort Normal Respiratory Pattern Normal Blood Pressure 174/87 H 150/74 H Blood Pressure Mean 116 99 Pulse Ox 98 98 Oxygen Delivery Method Room Air Positive well nourished and well developed Constitutional Narrative: Nontoxic, fatigued General Appearance ED: well developed HEENT Reports moist mucous membranes HEENT Narrative: No posterior pharyngeal erythema. normocephalic and atraumatic Eyes General Eye ED: Yes normal appearance of both eyes Neck full ROM Chest Wall Chest: Negative for tenderness Resp normal respiratory effort and normal air movement Effort and Inspection: symmetric chest movement; Negative for respiratory distress Cardio regular rhythm and no murmurs Rate: tachycardic Peripheral Pulses: pulses 2+ throughout GI normal to inspection, nondistended, normoactive bowel sounds and non-tender Palpation: Negative for guarding or rebound tenderness present Extremity normal to inspection General Extremety ED: Negative for edema or tenderness General Extremity: Negative for edema Neuro oriented x3 and no sensory deficits noted Sensorium / Orientation: awake and alert Skin no rashes or lesions noted and no wounds MDM MDM MDM Narrative Medical decision making narrative: Interventions / MDM: Differential diagnosis: Influenza, viral pneumonia Diagnosis considered but do not suspect: N/A My EKG interpretation: N/A Imaging independently reviewed and interpreted by myself: 2 view chest x-ray: Inflammatory right lower lobe viral pneumonia per radiology. External documents reviewed: N/A Test considered but not ordered:N/A ED course: Elevated temp 100.1 slight tachycardia. Myalgia with cough. No clinical strep concerns. Motrin ordered will send for COVID flu and RSV. Two-view chest x-ray for further evaluation. Chest x-ray viral pneumonia changes. Influenza positive. History of asthma symptoms started yesterday. Started on Tamiflu and prednisone with reported wheezing. She will continue Nish Motrin she will continue oral fluids. Outpatient follow-up with return precautions. All questions were answered. Re-evaluation: stable Disposition discussed with patient/family/significant other: Patient Case discussed with consulting clinician: N/A This note was generated with [employer]ik[employer] dictation software. It may contain incorrect words, spelling, and punctuation that were not noted in checking the note before signing. Radiography Diagnostic Testing: Clinical Impression(s) from Imaging Studies Chest X-Ray 09/11/24 17:08 IMPRESSION: Probable interstitial infiltrate in the right lower lobe which may be consistent with viral pneumonia Electronically Signed: Erik Britton MD at 17:21 EST , Discharge Plan Triage Chief Complaint: Fever ED Provider: Valente Faust Dx/Rx/DC Orders Clinical Impression: Influenza A, Asthma Instructions: Asthma Action Plan, ED Influenza (Adult) Prescriptions: New oseltamivir [Tamiflu] 75 mg capsule 75 mg PO BID 5 Days Qty: 10 0RF prednisone 20 mg tablet 40 mg PO DAILY Qty: 8 0RF Rx Instructions: next dose 09/12/24 Stand Alone Forms: ED Work / School Excuse Primary Care Provider: Care Physician,No Primary Referrals: Kelsi Joyce DO [Med Staff - Active Staff] - 1-2 Weeks Care Physician,No Primary [Primary Care Provider] - Activity Restrictions/Additional Instructions: Influenza A positive. Covid negative. Viral pneumonia changes on chest x-ray. Continue Nish Motrin oral fluids. Take Tamiflu as prescribed. Take prednisone as prescribed. Print Language: Slovenian Disposition Disposition: Home, Self Care Discharge Date/Time: 09/11/24 18:47
[2024-09-11] MEDS: Ibuprofen 600 MG Tablet PO (16:54)
--- NOTE | 2024-09-11 17:08 | RAD_ITS ---
STUDY: X-RAY CHEST REASON FOR EXAM: Female, 29 years old. cough TECHNIQUE: PA and lateral COMPARISON: None. FINDINGS: Mild asymmetric interstitial thickening in the right lower lobe possibly inflammatory. There is no demonstrated pleural abnormality. Normal size heart. Normal mediastinum and fela. Normal visualized pulmonary arteries. Normal visualized aortic arch and descending thoracic aorta. Normal visualized thoracic spine. Normal visualized ribs, clavicles, and shoulders. There is no demonstrated abnormality of the visualized soft tissue structures of the upper abdomen. RAD/Chest PA and Lateral IMPRESSION: Probable interstitial infiltrate in the right lower lobe which may be consistent with viral pneumonia Electronically Signed: Erik Britton MD at 17:21 EST ,
[2024-09-11] MEDS: predniSONE 20 MG Tablet 40 MG PO (18:29)
[2024-09-11] MEDS: Oseltamivir Phosphate 75 MG Capsule PO (18:29)
[2024-09-11 18:45] VITALS: BP 150/74; PULSE 110; RESP 18; TEMP 37.3; O2SAT 98
== END 2024-09-11 18:47 | disposition home or self-care (01) ==
PROVIDERS: Emergency Provider Emergency Medicine; Referring Provider Emergency Medicine; Visit Provider Emergency Medicine
DX: J10.1 Influenza due to other identified influenza virus with other respiratory manifestations (principal); J45.909 Unspecified asthma, uncomplicated; M79.10 Myalgia, unspecified site; F41.9 Anxiety disorder, unspecified; Z87.891 Personal history of nicotine dependence
CPT/HCPCS: 71046; 87631; 99283

== ENCOUNTER 2025-03-05 18:58 | Emergency (ER) | payer MEDICAID, SELFPAY ==
[2025-03-05 18:59] VITALS: BP 148/91; PULSE 96; RESP 18; TEMP 36.9; O2SAT 98; BMI 32.9
[2025-03-05 19:00] VITALS: BP 128/101; PULSE 80; RESP 16; TEMP 36.9; O2SAT 98
--- NOTE | 2025-03-05 21:00 | EDS_ITS ---
HPI <JACOB Durant - Last Filed: 03/05/25 21:29> History of Present Illness Chief Complaint: Cellulitis Narrative Narrative: 30-year-old female states 4 days ago her right areola became painful. The bumps on the inner aspect of the areola seem enlarged and slightly red. She squeezed the area and the nipple had a small amount of discharge to look like milk and oil. No pus. She denies fever or chills. She is not breast-feeding. PFSH <JACOB Durant - Last Filed: 03/05/25 21:29> [facility] Medical History (Updated 03/05/25 @ 21:23 by JACOB Durant) Bipolar 1 disorder Chlamydia infection affecting Asthma Psychiatric disorder Anxiety Home Medications ?Medication ?Instructions ?Recorded ?Last Taken ?Type oseltamivir 75 mg capsule (Tamiflu) 75 mg PO BID 5 day s #10 caps 09/11/24 Unknown Rx prednisone 20 mg tablet 40 mg (2 x 20 mg) PO DAILY # 8 tabs 09/11/24 Unknown Rx doxycycline hyclate 100 mg capsule 100 mg PO BID 7 day s #14 caps 03/05/25 Unknown Rx naproxen 500 mg tablet (Naprosyn) 500 mg PO BID PRN pa in #20 tabs 03/05/25 Unknown Rx Allergy/AdvReac Type Severity Reaction Status Date / Time kiwi Allergy Anaphylaxis Verified 03/05/25 19:00 Penicillins Allergy Anaphylaxis Verified 03/05/25 19:00 Surgical History History of surgery Social History Smoking Status: Former smoker ROS <JACOB Durant - Last Filed: 03/05/25 21:29> ROS ED ROS Narrative Constitutional: Negative for fever, chills, malaise. Skin: Negative for abscess, or wound. EXAM <JACOB Durant - Last Filed: 03/05/25 21:29> Physical Exam Narrative Exam Narrative: CONST: Patient sitting in no acute distress. EYES: Normal inspection. NECK: Normal inspection. RESP: No respiratory distress, CTAB. CVS: Regular rate and rhythm, no murmur, no gallop. CHEST: Medial aspect of the right areola has slightly enlarged bumps that are minimally red. They are tender to touch. They feel slightly indurated but there is no fluctuance. There is no drainage from the nipple with palpation. There are no other breast masses or abnormalities. EXTREMITIES: Normal appearance, no pedal edema. NEURO: Alert and answering questions appropriately. PSYCH: Normal affect. Const Vital Signs: 03/05/25 18:59 03/05/25 19:00 03/05/25 21:45 Temperature 98.4 F 98.5 F 98.2 F Temperature Source Oral Oral Pulse Rate 96 80 73 Respiratory Rate 18 16 14 Blood Pressure 148/91 H 128/101 H 130/87 H Blood Pressure Mean 110 110 101 Pulse Ox 98 98 100 Oxygen Delivery Method Room Air Room Air <Dr. Pastor Li DO - Last Filed: 03/05/25 23:46> Physical Exam Const Vital Signs: 03/05/25 18:59 03/05/25 19:00 03/05/25 21:45 Temperature 98.4 F 98.5 F 98.2 F Temperature Source Oral Oral Pulse Rate 96 80 73 Respiratory Rate 18 16 14 Blood Pressure 148/91 H 128/101 H 130/87 H Blood Pressure Mean 110 110 101 Pulse Ox 98 98 100 Oxygen Delivery Method Room Air Room Air [facility] <JACOB Durant - Last Filed: 03/05/25 21:29> [facility] Narrative Medical decision making narrative: Differential includes but not limited to cellulitis, abscess, breast cancer 30-year-old female was evaluated for right breast pain and itching. Along the medial areola the bumps from her sebaceous glands are slightly enlarged and tender. There is maybe mild overlying redness. There is no drainage from the bumps or the nipple. There is no palpable fluctuance. No lymphangitis. Bedsi de ultrasound shows no fluid collection. She reports the area is itching so it could be more allergic in nature. There is no signs of a fungal infection. To cover for early cellulitis I prescribed doxycycline and [facility]. She was discharged in stable condition. <Dr. Pastor Li DO - Last Filed: 03/05/25 23:46> [facility] Narrative Medical decision making narrative: Differential includes but not limited to cellulitis, abscess, breast cancer 30-year-old female was evaluated for right breast pain and itching. Along the medial areola the bumps from her sebaceous glands are slightly enlarged and ten maranda. There is maybe mild overlying redness. There is no drainage from the bumps or the nipple. There is no palpable fluctuance. No lymphangitis. Bedside ultrasound shows no fluid collection. She reports the area is itching so it could be more allergic in nature. There is no signs of a fungal infection. To cover for early cellulitis I prescribed doxycycline and recommended [facility]. She was discharged in stable condition. Supervisory Physician Note Patient was seen and examined with the Advanced Practice Provider. Nursing notes and vital signs have been reviewed. Pertinent old records have been reviewed. I agree with the essential elements of the SANDRA's history, physical exam, assessment, and plan. The differential diagnosis and management options were discussed with the SANDRA. I participated in determining and agree with the management, procedures, final impression and disposition as documented. See changes noted by me. Please see addendum or separate note for any additional details. 30-year-old female presents for evaluation of erythema around the right areola with pruritus and mild pain. Denies systemic symptoms Gen: A&O x3, NAD Head: Normocephalic, atraumatic Eyes: No sclera icterus, conjunctiva clear ENT: Moist mucous membranes Neck: Trachea midline, No JVD CV: RRR, no murmurs Resp: Lungs CTA BL, no w/r/c Brest: Minimal and faint erythema to the medial superior aspect of the right areola, no retracted nipple, no nipple discharge, no breast mass felt, no induration or fluctuance, no significant tenderness GI: Abd soft, non-distended, non-tender, no r/r/g Musc: Full ROM, no deformity Skin: Warm, dry Neuro: Alert, oriented, grossly intact, sensation intact Psych: Cooperative, appropriate mood and affect Differential diagnosis includes but is not limited to contact dermatitis, allergy, early cellulitis, breast cancer, not consistent with abscess. Given that the area is minimally erythematous and pruritic per her history, suspect possible contact dermatitis/allergy however cannot rule out early cellulitis/mastitis. Will place on doxycycline, first dose given here. Recommend following up with [facility] INSPECT[facility]. Return precautions explained. She agreed and understand the plan. Patient stable to discharge home. Impression: 1. Erythema of the right breast, allergic contact dermatitis versus early cellulitis 2. Pain of the right breast Discharge Plan Triage Chief Complaint: Cellulitis ED Midlevel Provider: Kelsi Gallegos ED Provider: Pastor Li Dx/Rx/DC Orders Clinical Impression: Cellulitis of right breast, Pain of right breast Instructions: Breast Anatomy, Cellulitis Dc Prescriptions: New doxycycline hyclate 100 mg capsule 100 mg PO BID 7 Days Qty: 14 0RF naproxen [Naprosyn] 500 mg tablet 500 mg PO BID PRN (Reason: pain) Qty: 20 0RF No Action oseltamivir [Tamiflu] 75 mg capsule 75 mg PO BID 5 Days Qty: 10 0RF prednisone 20 mg tablet 40 mg PO DAILY Qty: 8 0RF Rx Instructions: next dose 09/12/24 Primary Care Provider: Care Physician,No Primary Referrals: Melly Thakkar MD [Med Staff - Active Staff] - 3-5 Days Activity Restrictions/Additional Instructions: [facility] and to have a mammogram. Print Language: Zimbabwean Disposition Disposition: Home, Self Care Discharge Date/Time: 03/05/25 21:49
--- OUTSIDE RECORDS SUMMARY | 2025-03-05 21:05 | XMS RPT_ITS | CCD ---
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 because she is orally. Vital signs stable she is afebrile. Physical exam unremarkable. Recommended patient to take Tylenol ibuprofen for fevers and chills. Offered Zofran but she states she is not nauseous. Patient discharged home in stable condition. Impression: 1. Viral syndrome Discharge Plan Triage Chief Complaint: Sore Throat ED Provider: Kei Alvarez Dx/Rx/DC Orders Instructions: ED Pharyngitis, Viral Prescriptions: No Action Prena-Tab 65 mg iron- 1 mg Tablet 1 tab PO DAILY ibuprofen 600 mg tablet 600 mg PO Q8H PRN (Reason: pain) Qty: 30 0RF Primary Care Provider: Care Physician,No Primary Referrals: Care Physician,No Primary [Primary Care Provider] - Disposition Disposition: Home, Self Care Discharge Date/Time: 10/19/23 20:12 What to do if you have Problems For any increased pain, shortness of breath, bleeding, nausea or vomiting, chest pain, or any unexpected problems, contact your Primary Care Provider. Call [facility] ([phone]) or report to the closest Emergency Room. Call 911 if necessary. 10/19/23 2306 Cosigner Signature (if applicable): CC: (more content not included)... Normal [facility] - Microbiology an d Antimicrobial susceptibilityOrdered By: Kei Alvarez on 10-19-2023 SARS-CoV-2 (COVID-19) RNA OSMIN+probe Ql (Unsp spec) [facility] M100.678on 10-19-2023 M100.678 Normal Reference Ran ge = Negative COV + FLU + RSV PCR GeneXpert Instrument, PCR method SARS-CoV-2 (COVID 19) Negative INFLUENZA A Negative INFLUENZA B Negative RSV PCR Negative Normal [facility] Comment on above: Performed By: #### M 100.678 #### [facility] [address] [place], [address] HHon 07-27-2023 Hematocrit (Bld) [Volume fraction] 32.5 % Low 37.0-47.0 [facility] ([place] Comment on above: Performed By: #### H H #### [place] [place], [place] [address] Hgb 10.8 G/dL Low 12.0-16.0 [facility] ([place] Comment on above: Performed By: #### H H #### [address] [place], [place] [address] LABORATORYOrdered By: SYSTEM SYSTEM on 07-27-2023 Hematocrit (Bld) [Volume fraction] 32.5 % Low 37.0 - 47.0 % AO Workflow SS Hemoglobin (Bld) [Mass/Vol] 10.8 G/dL Low 12.0 - 16.0 G/dL AO Workflow SS RPRon 07-27-2023 Reagin Ab RPR Ql (S) Non-Reactive Normal Non-Karina cti ve [facility] ([place] Comment on above: Result Comment: The RPR test is a non-treponemal assay useful as an aid in the diagnosis of primary and secondary syphilis. It converts to positive generally within 2 weeks after the appearance of a lesion. This test is also useful for monitoring response to antibiotic therapy. A positive RPR screening test will be followed by the FTA ABS test. False positive RPR tests may occur in 1) patients with underlying autoimmune disorders, 2) elderly patients, 3) , and 4) other conditions with abnormal serum globulins. Performed By: #### U ADRIANA, HFP, CMP, ANEU, CBC, GFR, ADIFF #### [address] [address] .Auto Diffon 07-26-2023 Basophil, Absolute 0.0 10 3/mcL Normal 0.0-0.2 [facility] ([place]) Comment on above: Performed By: #### U ADRIANA, HFP, CMP, ANEU, CBC, GFR, ADIFF #### [address] [address] Basophils/100 WBC (Bld) 0.2 % Normal 0.0-2.5 [facility] ([place]) Comment on above: Performed By: #### U ADRIANA, HFP, CMP, ANEU, CBC, GFR, ADIFF #### [address] [address] Eosinophil, Absolute 0.1 10 3/mcL Normal 0.0-0.4 [facility] ([place]) Comment on above: Performed By: #### U ADRIANA, HFP, CMP, ANEU, CBC, GFR, ADIFF #### [address] [address] Eosinophils/100 WBC (Bld) 0.3 % Normal 0.0-7.0 [facility] ([place] Comment on above: Performed By: #### U ADRIANA, HFP, CMP, ANEU, CBC, GFR, ADIFF #### [address] [address] Lymphocyte, Absolute 2.0 10 3/mcL Normal 0.8-3.9 [facility] ([place] Comment on above: Performed By: #### U ADRIANA, HFP, CMP, ANEU, CBC, GFR, ADIFF #### [address] [address] Lymphocytes/100 WBC (Bld) 11.9 % Normal 10.0-50.0 [facility] ([place] Comment on above: Performed By: #### U ADRIANA, HFP, CMP, ANEU, CBC, GFR, ADIFF #### [address] [address] Monocyte, Absolute 0.8 10 3/mcL Normal 0.2-1.0 [facility] ([place] Comment on above: Performed By: #### U ADRIANA, HFP, CMP, ANEU, CBC, GFR, ADIFF #### [address] [address] Monocytes/100 WBC (Bld) 4.7 % Normal 1.7-13.0 [facility] ([place] Comment on above: Performed By: #### U ADRIANA, HFP, CMP, ANEU, CBC, GFR, ADIFF #### [address] [address] Neutrophils/100 WBC (Bld) 82.9 % High 37.0-80.0 [facility] ([place] Comment on above: Performed By: #### U ADRIANA, HFP, CMP, ANEU, CBC, GFR, ADIFF #### [address] [address] .GFRon 07-26-2023 GFR 113 ml/min/1.73sqm Normal [facility] ([place] Comment on above: Result Comment: GFR Population mean for , Non- Americans Ages 20-29 = 116 mL/min/1.73 sq.m. Ages 30-39 = 107 mL/min/1.73 sq.m. Ages 40-49 = 99 mL/min/1.73 sq.m. Ages 50-59 = 93 mL/min/1.73 sq.m. Ages 60-69 = 85 mL/min/1.73 sq.m. Ages 70+ = 75 mL/min/1.73 sq.m. Chronic Kidney Disease: Less than 60 mL/min/1.73 square meters End Stage Renal Disease: Less than 15 mL/min/1.73 square meters Performed By: #### U ADRIANA, HFP, CMP, ANEU, CBC, GFR, ADIFF #### [address] [address] GFR Non- 93 ml/min/1.73sqm Normal [facility] ([place] Comment on above: Result Comment: GFR Population mean for , Non- Americans Ages 20-29 = 116 mL/min/1.73 sq.m. Ages 30-39 = 107 mL/min/1.73 sq.m. Ages 40-49 = 99 mL/min/1.73 sq.m. Ages 50-59 = 93 mL/min/1.73 sq.m. Ages 60-69 = 85 mL/min/1.73 sq.m. Ages 70+ = 75 mL/min/1.73 sq.m. Chronic Kidney Disease: Less than 60 mL/min/1.73 square meters End Stage Renal Disease: Less than 15 mL/min/1.73 square meters Performed By: #### U ADRIANA, HFP, CMP, ANEU, CBC, GFR, ADIFF #### [address] [address] .NEUABSon 07-26-2023 Neutrophil, Absolute 14.1 10 3/mcL High 2.9-6.2 [facility] ([place] Comment on above: Performed By: #### U ADRIANA, HFP, CMP, ANEU, CBC, GFR, ADIFF #### [address] [address] CBCon 07-26-2023 Erythrocyte distribution width (RBC) [Ratio] 13.9 % Normal 11.5-14.5 [facility] ([place] Comment on above: Performed By: #### U ADRIANA, HFP, CMP, ANEU, CBC, GFR, ADIFF #### [place] [id number] Hematocrit (Bld) [Volume fraction] 38.7 % Normal 37.0-47.0 [facility] ([place] Comment on above: Performed By: #### U ADRIANA, HFP, CMP, ANEU, CBC, GFR, ADIFF #### [address] [address] Hgb 12.7 G/dL Normal 12.0-16.0 [facility] ([place] Comment on above: Performed By: #### U ADRIANA, HFP, CMP, ANEU, CBC, GFR, ADIFF #### [address] [address] MCH (RBC) [Entitic mass] 28.8 pg Normal 27.0-31.2 [facility] ([place] Comment on above: Performed By: #### U ADRIANA, HFP, CMP, ANEU, CBC, GFR, ADIFF #### [place] [address] MCHC 32.8 G/dL Low 33.0-37.0 [facility] ([place] Comment on above: Performed By: #### U ADRIANA, HFP, CMP, ANEU, CBC, GFR, ADIFF #### [place] [id number] MCV (RBC) [Entitic vol] 87.9 fL Normal 80.0-94.0 [facility] ([place] Comment on above: Performed By: #### U ADRIANA, HFP, CMP, ANEU, CBC, GFR, ADIFF #### [address] [address] Platelet 318 10 3/mcL Normal 130-400 [facility] ([place] Comment on above: Performed By: #### U ADRIANA, HFP, CMP, ANEU, CBC, GFR, ADIFF #### [address] [address] Platelet mean volume (Bld) [Entitic vol] 7.8 fL Normal 7.4-10.4 [facility] ([place] Comment on above: Performed By: #### U ADRIANA, HFP, CMP, ANEU, CBC, GFR, ADIFF #### [address] [address] RBC 4.41 10 6/mcL Normal 4.20-5.40 [facility] ([place] Comment on above: Performed By: #### U ADRIANA, HFP, CMP, ANEU, CBC, GFR, ADIFF #### [address] [address] WBC 17.0 10 3/mcL High 4.6-10.8 [facility] ([place] Comment on above: Performed By: #### U ADRIANA, HFP, CMP, ANEU, CBC, GFR, ADIFF #### [address] [address] CMPon 07-26-2023 Albumin Level 3.0 G/dL Low 3.5-5.0 [facility] ([place] Comment on above: Performed By: #### U ADRIANA, HFP, CMP, ANEU, CBC, GFR, ADIFF #### [address] [address] Albumin/Globulin [Mass ratio] 0.7 {ratio} Low 1.1-2.5 [facility] ([place] Comment on above: Performed By: #### U ADRIANA, HFP, CMP, ANEU, CBC, GFR, ADIFF #### [address] [address] ALP [Catalytic activity/Vol] 129 U/L Normal 40-135 [facility] ([place] Comment on above: Performed By: #### U ADRIANA, HFP, CMP, ANEU, CBC, GFR, ADIFF #### [address] [address] ALT [Catalytic activity/Vol] 21 U/L Normal 14-59 [facility] ([place] Comment on above: Performed By: #### U ADRIANA, HFP, CMP, ANEU, CBC, GFR, ADIFF #### [address] [address] AST [Catalytic activity/Vol] 21 U/L Normal 10-40 [facility] ([place] Comment on above: Performed By: #### U ADRIANA, HFP, CMP, ANEU, CBC, GFR, ADIFF #### [address] [address] Bili Total 1.0 mg/dL Normal 0.2-1.0 [facility] ([place] Comment on above: Result Comment: Use of this assay is not recommended for patients undergoing treatment with eltrombopag due to the potential for falsely elevated results. Performed By: #### U ADRIANA, HFP, CMP, ANEU, CBC, GFR, ADIFF #### [address] [address] BUN/Creatinine Ratio 16 ratio Normal 7-27 [facility] ([place] Comment on above: Performed By: #### U ADRIANA, HFP, CMP, ANEU, CBC, GFR, ADIFF #### [address] [address] Calcium [Mass/Vol] 9.8 mg/dL Normal 8.4-10.2 [facility] ([place]) Comment on above: Performed By: #### U ADRIANA, HFP, CMP, ANEU, CBC, GFR, ADIFF #### [address] [address] Chloride [Moles/Vol] 101 mmol/L Normal 98-107 [facility] ([place] Comment on above: Performed By: #### U ADRIANA, HFP, CMP, ANEU, CBC, GFR, ADIFF #### [address] [address] CO2 [Moles/Vol] 21 mmol/L Low 22-29 [facility] ([place] Comment on above: Performed By: #### U ADRIANA, HFP, CMP, ANEU, CBC, GFR, ADIFF #### [address] [address] Creatinine [Mass/Vol] 0.74 mg/dL Normal 0.55-1.02 [facility] ([place]) Comment on above: Performed By: #### U ADRIANA, HFP, CMP, ANEU, CBC, GFR, ADIFF #### [address] [address] Electrolyte Balance 13.0 mEq/L Normal 4.0-15.0 [facility] ([place]) Comment on above: Performed By: #### U ADRIANA, HFP, CMP, ANEU, CBC, GFR, ADIFF #### [address] [address] Globulin 4.2 G/dL Normal [facility] ([place] Comment on above: Performed By: #### U ADRIANA, HFP, CMP, ANEU, CBC, GFR, ADIFF #### [address] [address] Glucose [Mass/Vol] 85 mg/dL Normal 70-105 [facility] ([place] Comment on above: Performed By: #### U ADRIANA, HFP, CMP, ANEU, CBC, GFR, ADIFF #### [address] [address] Potassium [Moles/Vol] 4.0 mmol/L Normal 3.5-5.1 [facility] ([place]) Comment on above: Performed By: #### U ADRIANA, HFP, CMP, ANEU, CBC, GFR, ADIFF #### [address] [address] Sodium [Moles/Vol] 135 mmol/L Low 136-145 [facility] ([place]) Comment on above: Performed By: #### U ADRIANA, HFP, CMP, ANEU, CBC, GFR, ADIFF #### [address] [address] Total Protein 7.2 G/dL Normal 6.4-8.2 [facility] ([place] Comment on above: Performed By: #### U ADRIANA, HFP, CMP, ANEU, CBC, GFR, ADIFF #### [address] [address] Urea nitrogen [Mass/Vol] 12 mg/dL Normal 7-18 [facility] ([place] Comment on above: Performed By: #### U ADRIANA, HFP, CMP, ANEU, CBC, GFR, ADIFF #### [address] [address] Gel ABOon 07-26-2023 ABO/Rh Interp Positive Invalid Interpretation Code [facility] ([place] Comment on above: Performed By: #### U ADRIANA, HFP, CMP, ANEU, CBC, GFR, ADIFF #### [facility] [address] [place], [place] [address] Gel ABSon 07-26-2023 Antibody Screen Gel Negative Normal [facility] ([place]) Comment on above: Performed By: #### U ADRIANA, HFP, CMP, ANEU, CBC, GFR, ADIFF #### [facility] [address] [place], [place] [address] LABORATORYOrdered By: Romi Fermin on 07-26-2023 ABO and Rh group Nom (Bld) B positive (07/26/23 8:39 AM) [facility] Work Phone: Group B Strep Date Performed [id number] [facility] Work Phone: Group B Strep, External Negative (07/26/23 8:39 AM) [facility] Work Phone: Hepatitis B Date Performed [id number] [facility] Work Phone: Hepatitis B, External Negative (07/26/23 8:39 AM) [facility] Work Phone: HIV Antibodies, External Negative (07/26/23 8:39 AM) [facility] Work Phone: HIV Date Performed [id number] [facility] Work Phone: RPR, External Unknown (07/26/23 8:39 AM) [facility] Work Phone: Rubella Date Performed [id number] [facility] Work Phone: Rubella, External Immune (07/26/23 8:39 AM) [facility] Work Phone: LABORATORYOrdered By: Pily Smith on 07-26-2023 ABO/Rh Interp Positive Invalid Interpretation Code AO BB SS Antibody Screen Gel Negative ABSC (07/26/23 8:36 AM) Normal AO BB SS LABORATORYOrdered By: SYSTEM SYSTEM on 07-26-2023 Albumin BCP dye [Mass/Vol] 3.0 G/dL Low 3.5 - 5.0 G/dL AO ADM SS Albumin/Globulin [Mass ratio] 0.7 {ratio} Low 1.1 - 2.5 ratio AO ADM SS ALP [Catalytic activity/Vol] 129 U/L Normal 40 - 135 U/L AO ADM SS ALT With P-5'-P [Catalytic activity/Vol] 21 U/L Normal 14 - 59 U/L AO ADM SS AST With P-5'-P [Catalytic activity/Vol] 21 U/L Normal 10 - 40 U/L AO ADM SS Basophil, Absolute 0.0 103/mcL Normal 0.0 - 0.2 10^3/mcL AO Workflow SS Basophils/100 WBC (Bld) 0.2 % Normal 0.0 - 2.5 % AO Workflow SS Bilirubin [Mass/Vol] 1.0 mg/dL Normal 0.2 - 1 .0 mg/dL AO ADM SS Comment on above: Interpretive Data: U se of this assay is not recommended for patients undergoing treatment with eltrombopag due to the potential for falsely elevated results. Calcium [Mass/Vol] 9.8 mg/dL Normal 8.4 - 10. 2 mg/dL AO ADM SS Chloride [Moles/Vol] 101 mmol/L Normal 98 - 10 7 mmol/L AO ADM SS CO2 [Moles/Vol] 21 mmol/L Low 22 - 29 mmol/L AO ADM SS Creatinine [Mass/Vol] 0.74 mg/dL Normal 0.55 - 1.02 mg/dL AO ADM SS Electrolyte Balance 13.0 mEq/L Normal 4.0 - 15 .0 mEq/L AO ADM SS Eosinophil, Absolute 0.1 103/mcL Normal 0.0 - 0 .4 10^3/mcL AO Workflow SS Eosinophils/100 WBC (Bld) 0.3 % Normal 0.0 - 7.0 % AO Workflow SS Erythrocyte distribution width (RBC) [Ratio] 13.9 % Normal 11.5 - 14.5 % AO Workflow SS GFR/1.73 sq M.predicted among blacks MDRD (S/P/Bld) [Vol rate/Area] 113 ml/min/1.73sqm Invalid Interpretation Code AO Chemistry S Comment on above: Interpretive Data: GFR Population mean for , Non- Americans Ages 20-29 = 116 mL/min/1.73 sq.m. Ages 30-39 = 107 mL/min/1.73 sq.m. Ages 40-49 = 99 mL/min/1.73 sq.m. Ages 50-59 = 93 mL/min/1.73 sq.m. Ages 60-69 = 85 mL/min/1.73 sq.m. Ages 70+ = 75 mL/min/1.73 sq.m. Chronic Kidney Disease: Less than 60 mL/min/1.73 square meters End Stage Renal Disease: Less than 15 mL/min/1.73 square meters GFR/1.73 sq M.predicted among non-blacks MDRD (S/P/Bld) [Vol rate/Area] 93 ml/min/1.73sqm Invalid Interpretation Code AO Chemistry S Comment on above: Interpretive Data: GFR Population mean for , Non- Americans Ages 20-29 = 116 mL/min/1.73 sq.m. Ages 30-39 = 107 mL/min/1.73 sq.m. Ages 40-49 = 99 mL/min/1.73 sq.m. Ages 50-59 = 93 mL/min/1.73 sq.m. Ages 60-69 = 85 mL/min/1.73 sq.m. Ages 70+ = 75 mL/min/1.73 sq.m. Chronic Kidney Disease: Less than 60 mL/min/1.73 square meters End Stage Renal Disease: Less than 15 mL/min/1.73 square meters Globulin 4.2 G/dL Invalid Interpretation Code AO ADM SS Glucose [Mass/Vol] 85 mg/dL Normal 70 - 105 mg/dL AO ADM SS Hematocrit (Bld) [Volume fraction] 38.7 % Normal 37.0 - 47.0 % AO Workflow SS Hemoglobin (Bld) [Mass/Vol] 12.7 G/dL Normal 12.0 - 16.0 G/dL AO Workflow SS Lymphocyte, Absolute 2.0 103/mcL Normal 0.8 - 3 .9 10^3/mcL AO Workflow SS Lymphocytes/100 WBC (Bld) 11.9 % Normal 10.0 - 50.0 % AO Workflow SS MCH (RBC) [Entitic mass] 28.8 pg Normal 27.0 - 31.2 pg AO Workflow SS MCHC 32.8 G/dL Low 33.0 - 37.0 G/dL AO Workflow SS MCV (RBC) [Entitic vol] 87.9 fL Normal 80.0 - 94.0 fL AO Workflow SS Monocyte, Absolute 0.8 103/mcL Normal 0.2 - 1.0 10^3/mcL AO Workflow SS Monocytes/100 WBC (Bld) 4.7 % Normal 1.7 - 13.0 % AO Workflow SS Neutrophil, Absolute 14.1 103/mcL High 2.9 - 6 .2 10^3/mcL AO Workflow SS Neutrophils/100 WBC (Bld) 82.9 % High 37.0 - 80.0 % AO Workflow SS Platelet mean volume (Bld) [Entitic vol] 7.8 fL Normal 7.4 - 10.4 fL AO Workflow SS Platelets (Bld) [#/Vol] 318 103/mcL Normal 130 - 400 10^3/mcL AO Workflow SS Potassium [Moles/Vol] 4.0 mmol/L Normal 3.5 - 5.1 mmol/L AO ADM SS Protein [Mass/Vol] 7.2 G/dL Normal 6.4 - 8.2 G/dL AO ADM SS RBC (Bld) [#/Vol] 4.41 106/mcL Normal 4.20 - 5.40 10^6/mcL AO Workflow SS Sodium [Moles/Vol] 135 mmol/L Low 136 - 145 mmol/L AO ADM SS Urea nitrogen [Mass/Vol] 12 mg/dL Normal 7 - 18 mg/dL AO ADM SS Urea nitrogen/Creatinine [Mass ratio] 16 ratio Normal 7 - 27 ratio AO ADM SS Uric Acid Lvl 6.8 mg/dL High 2.6 - 6.2 mg/dL AO ADM SS WBC (Bld) [#/Vol] 17.0 103/mcL High 4.6 - 10.8 10^3/mcL AO Workflow SS LABORATORYOrdered By: Fartun lewis on 07-26-2023 Reagin Ab RPR Ql (S) Non-Reactive 2 (07/26/23 8:36 AM) Normal Non-Reacti ve AH Man Viro/Sero SS Comment on above: Interpretive Data: T he RPR test is a non-treponemal assay useful as an aid in the diagnosis of primary and secondary syphilis. It converts to positive generally within 2 weeks after the appearance of a lesion. This test is also useful for monitoring response to antibiotic therapy. A positive RPR screening test will be followed by the FTA ABS test. False positive RPR tests may occur in 1) patients with underlying autoimmune disorders, 2) elderly patients, 3) , and 4) other conditions with abnormal serum globulins. URICon 07-26-2023 Uric Acid Lvl 6.8 mg/dL High 2.6-6.2 [facility] ([place] Comment on above: Performed By: #### U ADRIANA, HFP, CMP, ANEU, CBC, GFR, ADIFF #### [address] [address] .Auto Diffon 07-23-2023 Basophil, Absolute 0.0 10 3/mcL Normal 0.0-0.2 [facility] ([place]) Comment on above: Performed By: #### U ADRIANA, HFP, CMP, ANEU, CBC, GFR, ADIFF #### [address] [address] Basophils/100 WBC (Bld) 0.3 % Normal 0.0-2.5 [facility] ([place]) Comment on above: Performed By: #### U ADRIANA, HFP, CMP, ANEU, CBC, GFR, ADIFF #### [address] [address] Eosinophil, Absolute 0.1 10 3/mcL Normal 0.0-0.4 [facility] ([place] Comment on above: Performed By: #### U ADRIANA, HFP, CMP, ANEU, CBC, GFR, ADIFF #### [address] [address] Eosinophils/100 WBC (Bld) 0.6 % Normal 0.0-7.0 [facility] ([place] Comment on above: Performed By: #### U ADRIANA, HFP, CMP, ANEU, CBC, GFR, ADIFF #### [address] [address] Lymphocyte, Absolute 2.0 10 3/mcL Normal 0.8-3.9 [facility] ([place] Comment on above: Performed By: #### U ADRIANA, HFP, CMP, ANEU, CBC, GFR, ADIFF #### [address] [address] Lymphocytes/100 WBC (Bld) 18.3 % Normal 10.0-50.0 [facility] ([place] Comment on above: Performed By: #### U ADRIANA, HFP, CMP, ANEU, CBC, GFR, ADIFF #### [address] [address] Monocyte, Absolute 0.9 10 3/mcL Normal 0.2-1.0 [facility] ([place]) Comment on above: Performed By: #### U ADRIANA, HFP, CMP, ANEU, CBC, GFR, ADIFF #### [address] [address] Monocytes/100 WBC (Bld) 8.8 % Normal 1.7-13.0 [facility] ([place]) Comment on above: Performed By: #### U ADRIANA, HFP, CMP, ANEU, CBC, GFR, ADIFF #### [address] [address] Neutrophils/100 WBC (Bld) 72.0 % Normal 37.0-80.0 [facility] ([place] Comment on above: Performed By: #### U ADRIANA, HFP, CMP, ANEU, CBC, GFR, ADIFF #### [address] [address] .GFRon 07-23-2023 GFR 105 ml/min/1.73sqm Normal [facility] ([place] Comment on above: Result Comment: GFR Population mean for , Non- Americans Ages 20-29 = 116 mL/min/1.73 sq.m. Ages 30-39 = 107 mL/min/1.73 sq.m. Ages 40-49 = 99 mL/min/1.73 sq.m. Ages 50-59 = 93 mL/min/1.73 sq.m. Ages 60-69 = 85 mL/min/1.73 sq.m. Ages 70+ = 75 mL/min/1.73 sq.m. Chronic Kidney Disease: Less than 60 mL/min/1.73 square meters End Stage Renal Disease: Less than 15 mL/min/1.73 square meters Performed By: #### U ADRIANA, HFP, CMP, ANEU, CBC, GFR, ADIFF #### [address] [address] GFR Non- 87 ml/min/1.73sqm Normal [facility] ([place]) Comment on above: Result Comment: GFR Population mean for , Non- Americans Ages 20-29 = 116 mL/min/1.73 sq.m. Ages 30-39 = 107 mL/min/1.73 sq.m. Ages 40-49 = 99 mL/min/1.73 sq.m. Ages 50-59 = 93 mL/min/1.73 sq.m. Ages 60-69 = 85 mL/min/1.73 sq.m. Ages 70+ = 75 mL/min/1.73 sq.m. Chronic Kidney Disease: Less than 60 mL/min/1.73 square meters End Stage Renal Disease: Less than 15 mL/min/1.73 square meters Performed By: #### U ADRIANA, HFP, CMP, ANEU, CBC, GFR, ADIFF #### [address] [address] .NEUABSon 07-23-2023 Neutrophil, Absolute 7.7 10 3/mcL High 2.9-6.2 [facility] ([place] Comment on above: Performed By: #### U ADRIANA, HFP, CMP, ANEU, CBC, GFR, ADIFF #### [address] [address] CBCon 07-23-2023 Erythrocyte distribution width (RBC) [Ratio] 13.9 % Normal 11.5-14.5 [facility] ([place] Comment on above: Performed By: #### U ADRIANA, HFP, CMP, ANEU, CBC, GFR, ADIFF #### [address] [address] Hematocrit (Bld) [Volume fraction] 36.9 % Low 37.0-47.0 [facility] ([place] Comment on above: Performed By: #### U ADRIANA, HFP, CMP, ANEU, CBC, GFR, ADIFF #### [address] [address] Hgb 12.2 G/dL Normal 12.0-16.0 [facility] ([place] Comment on above: Performed By: #### U ADRIANA, HFP, CMP, ANEU, CBC, GFR, ADIFF #### [place] [address] MCH (RBC) [Entitic mass] 29.1 pg Normal 27.0-31.2 [facility] ([place] Comment on above: Performed By: #### U ADRIANA, HFP, CMP, ANEU, CBC, GFR, ADIFF #### [place] [address] MCHC 33.0 G/dL Normal 33.0-37.0 [facility] ([place]) Comment on above: Performed By: #### U ADRIANA, HFP, CMP, ANEU, CBC, GFR, ADIFF #### [address] [address] MCV (RBC) [Entitic vol] 88.2 fL Normal 80.0-94.0 [facility] ([place]) Comment on above: Performed By: #### U ADRIANA, HFP, CMP, ANEU, CBC, GFR, ADIFF #### [address] [address] Platelet 314 10 3/mcL Normal 130-400 [facility] ([place] Comment on above: Performed By: #### U ADRIANA, HFP, CMP, ANEU, CBC, GFR, ADIFF #### [address] [address] Platelet mean volume (Bld) [Entitic vol] 7.9 fL Normal 7.4-10.4 [facility] ([place] Comment on above: Performed By: #### U ADRIANA, HFP, CMP, ANEU, CBC, GFR, ADIFF #### [place] [address] RBC 4.18 10 6/mcL Low 4.20-5.40 [facility] ([place] Comment on above: Performed By: #### U ADRIANA, HFP, CMP, ANEU, CBC, GFR, ADIFF #### [address] [address] WBC 10.7 10 3/mcL Normal 4.6-10.8 [facility] ([place]) Comment on above: Performed By: #### U ADRIANA, HFP, CMP, ANEU, CBC, GFR, ADIFF #### [address] [address] CMPon 07-23-2023 BUN/Creatinine Ratio 10 ratio Normal 7-27 [facility] ([place]) Comment on above: Performed By: #### U ADRIANA, HFP, CMP, ANEU, CBC, GFR, ADIFF #### [address] [address] Calcium [Mass/Vol] 9.7 mg/dL Normal 8.4-10.2 [facility] ([place]) Comment on above: Performed By: #### U ADRIANA, HFP, CMP, ANEU, CBC, GFR, ADIFF #### [address] [address] Chloride [Moles/Vol] 102 mmol/L Normal 98-107 [facility] ([place]) Comment on above: Performed By: #### U ADRIANA, HFP, CMP, ANEU, CBC, GFR, ADIFF #### [address] [address] CO2 [Moles/Vol] 25 mmol/L Normal 22-29 [facility] ([place]) Comment on above: Performed By: #### U ADRIANA, HFP, CMP, ANEU, CBC, GFR, ADIFF #### [address] [address] Creatinine [Mass/Vol] 0.79 mg/dL Normal 0.55-1.02 [facility] ([place]) Comment on above: Performed By: #### U ADRIANA, HFP, CMP, ANEU, CBC, GFR, ADIFF #### [address] [address] Electrolyte Balance 10.0 mEq/L Normal 4.0-15.0 [facility] ([place]) Comment on above: Performed By: #### U ADRIANA, HFP, CMP, ANEU, CBC, GFR, ADIFF #### [address] [address] Glucose [Mass/Vol] 71 mg/dL Normal 70-105 [facility] ([place]) Comment on above: Performed By: #### U ADRIANA, HFP, CMP, ANEU, CBC, GFR, ADIFF #### [address] [address] Potassium [Moles/Vol] 4.5 mmol/L Normal 3.5-5.1 [facility] ([place]) Comment on above: Performed By: #### U ADRIANA, HFP, CMP, ANEU, CBC, GFR, ADIFF #### [address] [address] Sodium [Moles/Vol] 137 mmol/L Normal 136-145 [facility] ([place]) Comment on above: Performed By: #### U ADRIANA, HFP, CMP, ANEU, CBC, GFR, ADIFF #### [address] [address] Urea nitrogen [Mass/Vol] 8 mg/dL Normal 7-18 [facility] ([place] Comment on above: Performed By: #### U ADRIANA, HFP, CMP, ANEU, CBC, GFR, ADIFF #### [address] [address] HFPon 07-23-2023 Bili Indirect 0.6 mg/dL Normal [facility] ([place] Comment on above: Performed By: #### U ADRIANA, HFP, CMP, ANEU, CBC, GFR, ADIFF #### [address] [address] Albumin Level 2.7 G/dL Low 3.5-5.0 [facility] ([place] Comment on above: Performed By: #### U ADRIANA, HFP, CMP, ANEU, CBC, GFR, ADIFF #### [address] [address] Albumin/Globulin [Mass ratio] 0.7 {ratio} Low 1.1-2.5 [facility] ([place] Comment on above: Performed By: #### U ADRIANA, HFP, CMP, ANEU, CBC, GFR, ADIFF #### [address] [address] ALP [Catalytic activity/Vol] 117 U/L Normal 40-135 [facility] ([place] Comment on above: Performed By: #### U ADRIANA, HFP, CMP, ANEU, CBC, GFR, ADIFF #### [address] [address] ALT [Catalytic activity/Vol] 20 U/L Normal 14-59 [facility] ([place] Comment on above: Performed By: #### U ADRIANA, HFP, CMP, ANEU, CBC, GFR, ADIFF #### [address] [address] AST [Catalytic activity/Vol] 14 U/L Normal 10-40 [facility] ([place] Comment on above: Performed By: #### U ADRIANA, HFP, CMP, ANEU, CBC, GFR, ADIFF #### [address] [address] Bili Direct 0.2 mg/dL Normal 0.0-0.2 [facility] ([place] Comment on above: Result Comment: Use of this assay is not recommended for patients undergoing treatment with eltrombopag due to the potential for falsely elevated results. Performed By: #### U ADRIANA, HFP, CMP, ANEU, CBC, GFR, ADIFF #### [address] [address] Bili Total 0.8 mg/dL Normal 0.2-1.0 [facility] ([place] Comment on above: Result Comment: Use of this assay is not recommended for patients undergoing treatment with eltrombopag due to the potential for falsely elevated results. Performed By: #### U ADRIANA, HFP, CMP, ANEU, CBC, GFR, ADIFF #### [address] [address] Globulin 4.0 G/dL Normal [facility] ([place] Comment on above: Performed By: #### U ADRIANA, HFP, CMP, ANEU, CBC, GFR, ADIFF #### [place] [place], [place] [address] Total Protein 6.7 G/dL Normal 6.4-8.2 [facility] ([place]) Comment on above: Performed By: #### U ADRIANA, HFP, CMP, ANEU, CBC, GFR, ADIFF #### [facility] [address] [place], [place] [address] LABORATORYOrdered By: SYSTEM SYSTEM on 07-23-2023 Basophil, Absolute 0.0 103/mcL Normal 0.0 - 0.2 10^3/mcL AO Workflow SS Basophils/100 WBC (Bld) 0.3 % Normal 0.0 - 2.5 % AO Workflow SS Bilirubin.direct [Mass/Vol] 0.2 mg/dL Normal 0.0 - 0.2 mg/dL AO ADM SS Comment on above: Interpretive Data: U se of this assay is not recommended for patients undergoing treatment with eltrombopag due to the potential for falsely elevated results. Bilirubin.direct [Mass/Vol] 0.6 mg/dL Invalid Interpretation Code AO Chemistry S Calcium [Mass/Vol] 9.7 mg/dL Normal 8.4 - 10. 2 mg/dL AO ADM SS Chloride [Moles/Vol] 102 mmol/L Normal 98 - 10 7 mmol/L AO ADM SS CO2 [Moles/Vol] 25 mmol/L Normal 22 - 29 mmol/L AO ADM SS Creatinine [Mass/Vol] 0.79 mg/dL Normal 0.55 - 1.02 mg/dL AO ADM SS Electrolyte Balance 10.0 mEq/L Normal 4.0 - 15 .0 mEq/L AO ADM SS Eosinophil, Absolute 0.1 103/mcL Normal 0.0 - 0 .4 10^3/mcL AO Workflow SS Eosinophils/100 WBC (Bld) 0.6 % Normal 0.0 - 7.0 % AO Workflow SS Erythrocyte distribution width (RBC) [Ratio] 13.9 % Normal 11.5 - 14.5 % AO Workflow SS GFR/1.73 sq M.predicted among blacks MDRD (S/P/Bld) [Vol rate/Area] 105 ml/min/1.73sqm Invalid Interpretation Code AO Chemistry S Comment on above: Interpretive Data: GFR Population mean for , Non- Americans Ages 20-29 = 116 mL/min/1.73 sq.m. Ages 30-39 = 107 mL/min/1.73 sq.m. Ages 40-49 = 99 mL/min/1.73 sq.m. Ages 50-59 = 93 mL/min/1.73 sq.m. Ages 60-69 = 85 mL/min/1.73 sq.m. Ages 70+ = 75 mL/min/1.73 sq.m. Chronic Kidney Disease: Less than 60 mL/min/1.73 square meters End Stage Renal Disease: Less than 15 mL/min/1.73 square meters GFR/1.73 sq M.predicted among non-blacks MDRD (S/P/Bld) [Vol rate/Area] 87 ml/min/1.73sqm Invalid Interpretation Code AO Chemistry S Comment on above: Interpretive Data: GFR Population mean for , Non- Americans Ages 20-29 = 116 mL/min/1.73 sq.m. Ages 30-39 = 107 mL/min/1.73 sq.m. Ages 40-49 = 99 mL/min/1.73 sq.m. Ages 50-59 = 93 mL/min/1.73 sq.m. Ages 60-69 = 85 mL/min/1.73 sq.m. Ages 70+ = 75 mL/min/1.73 sq.m. Chronic Kidney Disease: Less than 60 mL/min/1.73 square meters End Stage Renal Disease: Less than 15 mL/min/1.73 square meters Glucose [Mass/Vol] 71 mg/dL Normal 70 - 105 mg/dL AO ADM SS Hematocrit (Bld) [Volume fraction] 36.9 % Low 37.0 - 47.0 % AO Workflow SS Hemoglobin (Bld) [Mass/Vol] 12.2 G/dL Normal 12.0 - 16.0 G/dL AO Workflow SS Lymphocyte, Absolute 2.0 103/mcL Normal 0.8 - 3 .9 10^3/mcL AO Workflow SS Lymphocytes/100 WBC (Bld) 18.3 % Normal 10.0 - 50.0 % AO Workflow SS MCH (RBC) [Entitic mass] 29.1 pg Normal 27.0 - 31.2 pg AO Workflow SS MCHC 33.0 G/dL Normal 33.0 - 37.0 G/dL AO Workflow SS MCV (RBC) [Entitic vol] 88.2 fL Normal 80.0 - 94.0 fL AO Workflow SS Monocyte, Absolute 0.9 103/mcL Normal 0.2 - 1.0 10^3/mcL AO Workflow SS Monocytes/100 WBC (Bld) 8.8 % Normal 1.7 - 13.0 % AO Workflow SS Neutrophil, Absolute 7.7 103/mcL High 2.9 - 6 .2 10^3/mcL AO Workflow SS Neutrophils/100 WBC (Bld) 72.0 % Normal 37.0 - 80.0 % AO Workflow SS Platelet mean volume (Bld) [Entitic vol] 7.9 fL Normal 7.4 - 10.4 fL AO Workflow SS Platelets (Bld) [#/Vol] 314 103/mcL Normal 130 - 400 10^3/mcL AO Workflow SS Potassium [Moles/Vol] 4.5 mmol/L Normal 3.5 - 5.1 mmol/L AO ADM SS RBC (Bld) [#/Vol] 4.18 106/mcL Low 4.20 - 5.40 10^6/mcL AO Workflow SS Sodium [Moles/Vol] 137 mmol/L Normal 136 - 145 mmol/L AO ADM SS Urea nitrogen [Mass/Vol] 8 mg/dL Normal 7 - 18 mg/dL AO ADM SS Urea nitrogen/Creatinine [Mass ratio] 10 ratio Normal 7 - 27 ratio AO ADM SS Uric Acid Lvl 6.1 mg/dL Normal 2.6 - 6.2 mg/dL AO ADM SS WBC (Bld) [#/Vol] 10.7 103/mcL Normal 4.6 - 10.8 10^3/mcL AO Workflow SS Laboratory - Chemistry and C hemistry - challengeOrdered By: SYSTEM SYSTEM on 07-23-2023 Albumin BCP dye [Mass/Vol] 2.7 G/dL Low 3.5 - 5.0 G/dL AO ADM SS Albumin/Globulin [Mass ratio] 0.7 {ratio} Low 1.1 - 2.5 ratio AO ADM SS ALP [Catalytic activity/Vol] 117 U/L Normal 40 - 135 U/L AO ADM SS ALT With P-5'-P [Catalytic activity/Vol] 20 U/L Normal 14 - 59 U/L AO ADM SS AST With P-5'-P [Catalytic activity/Vol] 14 U/L Normal 10 - 40 U/L AO ADM SS Bilirubin [Mass/Vol] 0.8 mg/dL Normal 0.2 - 1 .0 mg/dL AO ADM SS Comment on above: Interpretive Data: U se of this assay is not recommended for patients undergoing treatment with eltrombopag due to the potential for falsely elevated results. Protein [Mass/Vol] 6.7 G/dL Normal 6.4 - 8.2 G/dL AO ADM SS No Panel InformationOrdered By: SYSTEM SYSTEM on 07-23-2023 Globulin 4.0 G/dL Invalid Interpretation Code AO ADM SS RPCURon 07-23-2023 U Creatinine 313.0 mg/dL High 28.0-117.0 [facility] ([place]) Comment on above: Performed By: #### R PCUR #### [address] [address] U Protein 69 mg/dL High 0-11 [facility] ([place]) Comment on above: Performed By: #### R PCUR #### [address] [address] U Ratio Prot/Creat 0.2 ratio Normal [facility] ([place]) Comment on above: Result Comment: resu lt calculated by rule GL_UR_PROT_NOTCALC_OLD (U Protein/U Creatinine) Performed By: #### R PCUR #### [address] [address] URICon 07-23-2023 Uric Acid Lvl 6.1 mg/dL Normal 2.6-6.2 [facility] ([place]) Comment on above: Performed By: #### U ADRIANA, HFP, CMP, ANEU, CBC, GFR, ADIFF #### [address] [address] GBSPCRon 06-30-2023 Group B Strep (PCR) Negative Normal Negative [facility] ([place]) Comment on above: Performed By: #### G BSPCR #### [address] [address] Group B Strep PCR Int Normal [facility] ([place]) Comment on above: Result Comment: Grou p B Streptococcus DNA not detected by real-time PCR. A negative result does not rule out the possibility of Group B streptococcus. Assay should be used as an adjunct to clinical observations and other information available to the physician. The test is not intended to differentiate carriers of Group B streptococcus from those with streptococcal disease. See Below Performed By: #### G BSPCR #### [facility] [address] [address] LABORATORYOrdered By: Pily Smith on 06-29-2023 Group B Strep PCR Int Group B Streptococ cus DNA not detected by real-time PCR. A negative result does not rule out the possibility of Group B streptococcus. Assay should be used as an adjunct to clinical observations and other information available to the physician. The test is not intended to differentiate carriers of Group B streptococcus from those with streptococcal disease. Invalid Interpretation Code AO Auto Urine SS S. agalactiae DNA OSMIN+probe Ql (Unsp spec) Negative *NA* (06/29/23 10:50 AM) Invalid Interpretation Code Negative AO Auto Urine SS Absolute lymphocyte countOrd ered By: Michoacano Burgess on 04-06-2023 Lymphocytes Auto (Unsp spec) [#/Vol] 1.89 10*3/uL 0.83-4.51 [facility] Basophil percentageOrdered B y: Michoacano Burgess on 04-06-2023 Basophils/100 WBC (Bld) 0.2 % 0-1 [facility] Eosinophils/100 WBC (Bld) 1.5 % 0-5 [facility] Neutrophils (Bld) [#/Vol] 7.4 10*3/uL 2.0-7.7 [facility] Neutrophils/100 WBC (Bld) 72.7 % 47-70 [facility] WBC (Bld) [#/Vol] 10.2 10*3/uL 4.4-11.0 [facility] Blood erythrocytes count (nu mber/volume)Ordered By: Michoacano Burgess on 04-06-2023 RBC (Bld) [#/Vol] 3.73 10*6/uL 4.2-5.4 [facility] Blood hemoglobin measurement (mass/volume)Ordered By: Michoacano Burgess on 04-06-2023 Hemoglobin (Bld) [Mass/Vol] 10.9 g/dL 12.0-15.0 [facility] Blood lymphocytes/100 leukoc ytesOrdered By: Michoacano Burgess on 04-06-2023 Lymphocytes/100 WBC (Bld) 18.6 % 19-41 [facility] Blood monocytes/100 leukocyt esOrdered By: Michoacano Burgess on 04-06-2023 Monocytes/100 WBC (Bld) 6.3 % 0-10 [facility] Blood platelet mean volumeOr dered By: Michoacano Burgess on 04-06-2023 Platelet mean volume (Bld) [Entitic vol] 8.9 fL 6.2-12.0 [facility] Determination of erythrocyte mean corpuscular volume (MCV)Ordered By: Michoacano Burgess on 04-06-2023 MCV (RBC) [Entitic vol] 92.5 fL 81-99 [facility] Gestational diabetes screen 1-hour screen with 50g oral glucose loadOrdered By: Michoacano Burgess on 04-06-2023 Glucose 1 Hr post 50 g glucose PO [Mass/Vol] 84 mg/dL 70-140 [facility] Hematocrit Auto (Bld) [Volum e fraction]Ordered By: Michoacano Burgess on 04-06-2023 Hematocrit (Bld) [Volume fraction] 34.5 % 37-47 [facility] Laboratory - Hematology and Cell countsOrdered By: Michoacano Burgess on 04-06-2023 Erythrocyte distribution width (RBC) [Entitic vol] 45.5 fL 35.1-43.9 [facility] Erythrocyte distribution width (RBC) [Ratio] 13.4 % 11.6-14.6 [facility] Immature granulocytes/100 WBC (Bld) 0.700 % 0.0-0.9 [facility] Comment on above: IG% - Immature Granu locytes (promyelocytes, myelocytes and metamyelocytes) > 1% indicates that a LEFT SHIFT is Present. MCH (RBC) [Entitic mass] 29.2 pg 27.0-32.0 [facility] Nucleated RBC/100 WBC (Bld) [Ratio] 0 % 0-5 [facility] MCHC Auto (RBC) [Mass/Vol]Or dered By: Michoacano Burgess on 04-06-2023 MCHC (RBC) [Mass/Vol] 31.6 g/dL 32-36 [facility] Platelets bldOrdered By: Pilo Burgess on 04-06-2023 Platelets (Bld) [#/Vol] 310 10*3/uL 150-450 [facility] Serum Treponema species anti body detectionOrdered By: Michoacano Gaston on 04-06-2023 Treponema sp Ab Ql (S) Non-Reactive [facility] ANKLE, COMPLETE, MIN 3 VIEWS on 04-21-2022 ANKLE, COMPLETE, MIN 3 VIEWS Patient Name: DEBBY HICKS STUDY: FOOT; COMPLETE, MIN 3 VIEWS; ANKLE, COMPLETE, MIN 3 VIEWS; Right; 04/21/2022 4:12 pm INDICATION: injury . COMPARISON: None. ACCESSION NUMBER(S): [id number]; [id number] ORDERING CLINICIAN: FLOR GARCIA FINDINGS: AP, oblique and lateral views were obtained. There is no fracture or dislocation. Joint spaces are intact. IMPRESSION: No acute osseous abnormality Electronically signed by: ELISA WALLER MD, [facility] FOOT COMPLETE, MIN 3 VIEWSon 04-21-2022 FOOT COMPLETE, MIN 3 VIEWS Patient Name: DEBBY HICKS STUDY: FOOT; COMPLETE, MIN 3 VIEWS; ANKLE, COMPLETE, MIN 3 VIEWS; Right; 04/21/2022 4:12 pm INDICATION: injury . COMPARISON: None. ACCESSION NUMBER(S): [id number]; [id number] ORDERING CLINICIAN: FLOR GARCIA FINDINGS: AP, oblique and lateral views were obtained. There is no fracture or dislocation. Joint spaces are intact. IMPRESSION: No acute osseous abnormality Electronically signed by: ELISA WALLER MD, [facility] Provider Note - ED v3on Provider Note - ED v3 Provider Note: Chart Review: ED NOTES ED NOTES: ====HPI==== Patient is a 27-year-old female who presents to the emergency department with a chief complaint of right foot pain. Approximately 1 hour prior to arrival the patient states that she was making macaroni and cheese when her macaroni started to boil over. She states that she tripped over her cat in her kitchen while attempting to tend to the stove. She states that she rolled her right ankle. She is complaining of lateral foot and right ankle pain. She denies any other injuries. PMHX: Asthma Social HX: Yes TOBACCO Denies ETOH Denies DRUGS ====Review of Systems==== 10 point system review is negative except for those specifically mentioned in history of present illness ====Physical Exam==== Constitutional/General: Alert and oriented x3, well appearing, nontoxic, and in NAD. Head: Normocephalic and atraumatic. Eyes: EOMI, conjunctive normal, sclera nonicteric, subconjunctival layer is pink. Mouth: Oropharynx clear, handling secretions, no trismus, no asymmetry of the posterior oropharynx or uvular edema Neck: Supple, full ROM, no stridor, no crepitus, no meningeal signs. Trachea at midline. Respiratory: Lungs clear to auscultation bilaterally, no wheezes, rales, or rhonchi, not in respiratory distress. Cardiovascular: Regular rate, regular rhythm, no murmurs, gallops, or rubs, 2+ distal pulses. Chest: normal chest wall movement Musculoskeletal: Right ankle with tenderness to palpation and right lateral football coach to palpation. No ecchymosis or erythema. No appreciated edema. Moves all extremities x4, warm and well perfused, no clubbing, cyanosis, or edema, cap refill <3 seconds Integument: Skin warm and dry, no rashes. Neurologic: No focal deficits Psychiatric: Normal affect. ====ED Course and Medical Decision Making==== See MDM section for review of findings & plan of care. Portions of this note were dictated by speech recognition. An attempt at proof reading was made to minimize errors. Minor errors in process design engineer may be present. Please call if questions.. HISTORY OF PRESENTING ILLNESS DEBBY is a 27 year old Female and was seen by me at 21-Apr-2022 15:39 for a chief complaint of foot injury (Patient to ED reference right foot pain. Patient making lunch for kids and tripped over cat rolling her right ankle.)(1). Triage Information: Most recent Vital Sign Value Date Temp (F): 98.1 04-21-2022 15:35 Temp (C): 36.7 04-21-2022 15:35 Heart Rate (beats/min): 77 04-21-2022 15:35 Respirations (breaths/min): 16 04-21-2022 15:35 SpO2 (%): 98 04-21-2022 15:35 BP Systolic (mm Hg): 118 04-21-2022 15:35 BP Diastolic (mm Hg): 80 04-21-2022 15:35 PAST MEDICAL HISTORY ALLERGIES/INTOLERANCES: Allergy Allergen: penicillin Type: Drug Reaction: Anaphylaxis Allergen: Kiwi Type: Food Reaction: Anaphylaxis HEALTH HISTORY: No documented data. OUTPATIENT MEDICATIONS: Home Medications Review Status for Reconciliation: N/A Med Status: Patient Currently Takes Medications Drug Name: Prena1 oral capsule Instructions: 1 cap(s) orally once a day Drug Name: ferrous sulfate 300 mg (60 mg elemental iron) oral tablet Instructions: null Drug Name: predniSONE 50 mg oral tablet Instructions: 1 tab(s) orally once a day x 5 days Drug Name: EPINEPHrine 0.3 mg injectable kit Instructions: 0.3 milligram(s) intramuscularly As Needed for severe allergic reaction Drug Name: ondansetron 4 mg oral tablet, disintegrating Instructions: 1 tab(s) orally 3 times a day SIGNIFICANT EVENTS: Past Medical History Description:Asthma Past Surgical History Description:pt denies CRITICAL CARE RESULTS: Radiology Results: Impression: No acute osseous abnormality Xray Ankle 3 View [Apr 21 2022 4:26PM] Impression: No acute osseous abnormality Xray Foot Complete Min 3 View [Apr 21 2022 4:26PM] VITAL SIGNS: T PRBP SpO2O2(LPM) %FiO2 Method 21-Apr-2022 16:05:[id number] 97 room air, no respiratory support 21-Apr-2022 15:35:[id number]/80 98 room air, no respiratory support [facility] MDM/ED COURSE: X-ray of the right foot and ankle shows no acute abnormality. Patient was instructed to follow-up with podiatry if no improvement of her symptoms. DISPOSITION Diagnosis/Annotation: ED Dx Name:Right ankle sprain Code:S93.401A Name:Right foot sprain Code:S93.601A Disposition: discharged CONSULT CRITICAL CARE TIME Is this a critically ill patient: no Electronic Signatures: Flor Garcia (KELLEY) (Signed 21-Apr-2022 16:56) Authored: ED Notes, HPI, PMH, Results/Vital Signs, MDM/ED Course, Clinical Impression, Attestation, Chart Review, Scores Last Updated: 21-Apr-2022 16:56 by Flor Garcia (KELLEY) References: 1. Data Referenced From Triage - ED 21-Apr-2022 15:35 Normal [facility] Provider Note - ED v3on 07-3 Provider Note - ED v3 Provider Note: Chart Review: HISTORY OF PRESENTING ILLNESS DEBBY is a 27 year old Female and was seen by me at 19-Mar-2022 17:27 for a chief complaint of foot pain/injury (c/o left great toe pain. states she missed a step and hit her toe.)(1). Triage Information: Most recent Vital Sign Value Date Temp (F): 98 03-19-2022 17:24 Temp (C): 36.6 03-19-2022 17:24 Heart Rate (beats/min): 105 03-19-2022 17:24 Respirations (breaths/min): 20 03-19-2022 17:24 SpO2 (%): 98 03-19-2022 17:24 BP Systolic (mm Hg): 130 03-19-2022 17:24 BP Diastolic (mm Hg): 85 03-19-2022 17:24 PAST MEDICAL HISTORY ALLERGIES/INTOLERANCES: Allergy Allergen: penicillin Type: Drug Reaction: Anaphylaxis Allergen: Kiwi Type: Food Reaction: Anaphylaxis HEALTH HISTORY: No documented data. OUTPATIENT MEDICATIONS: Home Medications Review Status for Reconciliation: N/A Med Status: Patient Currently Takes Medications Drug Name: Prena1 oral capsule Instructions: 1 cap(s) orally once a day Drug Name: ferrous sulfate 300 mg (60 mg elemental iron) oral tablet Instructions: null Drug Name: predniSONE 50 mg oral tablet Instructions: 1 tab(s) orally once a day x 5 days Drug Name: EPINEPHrine 0.3 mg injectable kit Instructions: 0.3 milligram(s) intramuscularly As Needed for severe allergic reaction Drug Name: ondansetron 4 mg oral tablet, disintegrating Instructions: 1 tab(s) orally 3 times a day SIGNIFICANT EVENTS: Past Medical History Description:Asthma Past Surgical History Description:pt denies CRITICAL CARE RESULTS: Radiology Results: Impression: Two small densities are noted just medial to the margin of the base of the first distal phalanx and the head of the first proximal phalanx which may relate to calcification or sequela of avulsion injury of indeterminate acuity. There is also evidence of mild medial soft tissue swelling of the first toe in this region which may relate to trauma or soft tissue infection excluded. Xray Toe 2 View [Mar 19 2022 6:25PM] MDM MDM/ED COURSE: PMH: Reviewed PSH: Reviewed Social History: Reviewed. Allergies reviewed. HPI: This is a 27 year old female who presents to the ED today with complaints of left great toe pain. Her foot was curled under when she missed a step in her garage, putting all her weight on the front of the foot. Has had continued pain and swelling for several hours now. Nothing taken for pain at home. Denies chance of . PHYSICAL EXAM: GENERAL: Vitals noted, no distress. Alert and oriented x 3. Non-toxic. CARDIAC: Regular rate, rhythm. RESPIRATORY: No respiratory distress. MUSCULOSKELETAL & SKIN: Warm, dry, and intact. No rash/lesions. No peripheral edema. NEURO: No focal neurologic deficits, acting appropriately. ED COURSE: This patient was seen and examined by myself independently. Given motrin 600mg orally. Xray of the left great toe shows densities medial to the base of the first distal phalanx with avulsion injury. Post op shoe placed. Declined narcotic pain medication for home. Referred to podiatry. She is discharged home in a stable condition with computer instructions given and is encouraged to return to the ER for any new or worsening symptoms. DIAGNOSTIC IMPRESSION: #1 left great toe fracture DISPOSITION Diagnosis/Annotation: ED Dx Name:Fracture of great toe, left, closed Code:S92.402A Disposition: discharged Type: home CONSULT CRITICAL CARE TIME Is this a critically ill patient: no Electronic Signatures: Flor Medina (VIDEO CAMERA OPERATOR-CIVIL MANAGER) (Signed 19-Mar-2022 18:52) Authored: HPI, PMH, Results/Vital Signs, MDM/ED Course, Clinical Impression, Attestation, Chart Review, Scores Last Updated: 19-Mar-2022 18:52 by Flor Medina (VIDEO CAMERA OPERATOR-CIVIL MANAGER) References: 1. Data Referenced From Triage - ED 19-Mar-2022 17:[address] [facility] Risk Screen - Adult Emergenc yon 03-19-2022 Risk Screen - Adult Emergency Preferred Language: Preferred Language: Preferred Language for Discussing Health Care (patient/designee)[place] Advanced Directives: Advance Directive/DNRno Family Violence Adult: Abuse Screen: Are you or have you been threatened or abused physically, emotionally, or sexually by anyoneno Learning Assessment (Patient): Learning Assessment (Patient): Patient is Able to be Assessed for Learningyes Factors Influencing Readiness to Learnn/a Factors that Impact Ability to Learnnone Devices/Methods Used to Communicatenone Learning Preferencesverbal instruction; written material Cultural Considerationsnone Developmental Considerationsnone Baptism Considerationsnone Learning Assessment (Other Learner): Learning Assessment (Other Learner): Other learner availableno Pressure Injury/TB/Substance: Pressure Injury: Do you have a coughno Smoking Statusmoderate user (uses 11-30 cig/day, OR 0.5-1.5 ppd, OR 2-3 cans/pouches loose leaf tobacco per week, OR 0.5-1.5 vape pods per day) Tobacco Cessation Education (provide if tobacco use within the last 12 mos) patient declined Alcohol Useoccasionally Drug Useoccasionally Admission Risk Screen: Significant IndicatorsComplete CAGE: CAGE: Is this an injured patient at a Trauma Center ([facility] [place]/[facility] [place]/ [place]): no Electronic Signatures: Georgia Winston (MAU) (Signed 19-Mar-2022 17:34) Authored: Preferred Language, Advanced Directives, Family Violence Adult, Learning Assessment (Patient), Learning Assessment (Other Learner), Pressure Injury/TB/Substance, Pressure Injury, CAGE Last Updated: 19-Mar-2022 17:34 by Georgia Winston (MAU) [facility] TOE(S) 2 VIEWSon 03-19-2022 TOE(S) 2 VIEWS Patient Name: DEBBY HICKS STUDY: TOE 2 VIEWS; Left; 03/19/2022 5:41 pm INDICATION: great toe pain . COMPARISON: None. ACCESSION NUMBER(S): [id number] ORDERING CLINICIAN: FLOR MEDINA FINDINGS: Two small densities are noted just medial to the margin of the base of the first distal phalanx and the head of the first proximal phalanx and may relate to calcification or sequela of avulsion injury of indeterminate acuity. There is also evidence of mild medial soft tissue swelling of the first toe in this region and soft tissue injury infection is not excluded. IMPRESSION: Two small densities are noted just medial to the margin of the base of the first distal phalanx and the head of the first proximal phalanx which may relate to calcification or sequela of avulsion injury of indeterminate acuity. There is also evidence of mild medial soft tissue swelling of the first toe in this region which may relate to trauma or soft tissue infection excluded. Electronically signed by: YASMIN NAIDU MD [facility] Triage - EDon 03-19-2022 Triage - ED Quick Triage: Are You no Have You Given In The Last 6 Weeksno Are You Currently Breastfeedingno Chart Review: PRIMARY ASSESSMENT ABCD Normal Findings: airway open and patent, circulation normal and alert and oriented ARRIVAL INFORMATION Means of Arrival: Ambulatory Mode of Arrival: private vehicle Arrival From: home Accompanied By: self Language: Spoken Language Preferred: [place] Reading Language Preferred: [place] Present on Arrival: Device Present on Arrival to ED: no CHIEF COMPLAINT DEBBY HICKS is a Female patient with a chief complaint of foot pain/injury (c/o left great toe pain. states she missed a step and hit her toe.). Triage Date/Time: 19-Mar-2022 17:20 ALEENA: 4 Pain Rating (0-10): 9 = Severe Pain location: left great toe Vital Signs: Temperature: 98.0F ( 36.6C) taken temporal Blood Pressure: 130/85 Mean: Heart Rate: 105 Respiratory Rate: 20 Pulse Oximetry: 98% on room air, no respiratory support. Height: 5 feet 7.00 inches. 170.1 CM Weight: 190.4 pounds. Calculated 86.4 kg. (stated) Calculated BMI (kg/m2): 29.861 Calculated BSA (m2) 2.02 Rhonda Coma Scale: Best Eye Response: (E4) spontaneous Best Motor Response: (M6) obeys commands Best Verbal Response: (V5) oriented Daisy Score: 15 Allergies: yes Last menstrual period: unknown BIOMEDICAL SPECIALIST History: control Patient has homicidal thoughts: no Symptom Notes: . Symptoms Are POSITIVE For: pain (describe) and decreased ROM. Risk Screens Suicide Risk Screen In the Past Month: Have you wished you were or wished you could go to sleep and not wake up no In the Past Month: Have you had any actual thoughts of killing yourself no In Your Lifetime: Have you ever done anything, started to do anything, or prepared to do anything to end your life no Interventions: Love Fall Interventions: LOW INTERVENTIONS: *patient oriented to surroundings and call system, * patient/family falls education completed and documented, *patients fall status communicated during bedside handoff, *whiteboard updated, *mode of toileting discussed with patient, *bed in low position with brakes locked, *call light in reach, * non-skid footwear TRAVEL HISTORY Travel History Coronavirus Screening: no exposure or symptoms Travel Exposure History: NO travel to International locations in the past 30 days PAIN Pain Scale Used: NIYA Pain Rating (0-10): 9 = Severe Past Medical History: Past Medical History Reviewedyes Electronic Signatures: Georgia Winston (RN) (Signed 19-Mar-2022 17:30) Entered: Risk Screens, Pain, Arrival, ABCD, Travel History, Chart Review, Scores, Past Medical History Authored: Quick Triage, Risk Screens, Pain, Arrival, ABCD, Travel History, Chart Review, Scores, Past Medical History Last Updated: 19-Mar-2022 17:30 by Georgia Winston (RN) [facility] Chlamydia trachomatis rRNA d etection by probe and target amplification methodon 11-11-2021 C. trachomatis rRNA OSMIN+probe Ql (Unsp spec) Negative Negative [facility] Work Phone: Culture, urineon 11-11-2021 Bacteria identified Cx Nom (U) Positive [facility] Work Phone: Laboratory - Chemistry and C hemistry - challengeon 11-11-2021 Free T4 [Mass/Vol] 0.88 ng/dL 0.76-1.46 [facility] Work Phone: Laboratory - Microbiology an d Antimicrobial susceptibilityon 11-11-2021 N. gonorrhoeae DNA OSMIN+probe Ql (Unsp spec) Negative Negative [facility] Work Phone: Comment on above: Performed at: =[facility] [address], [id number] Director: Cassie Martinez MD, Phone: [phone] No Panel Informationon 11-11 Follicle Stimulating Hormone 4.0 mIU/mL [facility] Work Phone: Comment on above: NORMAL REFERENCE RAN GES FEMALE FOLLICULAR 2.3 - 12.6 mIU/mL MID-CYCLE PEAK 5.2 - 17.5 mIU/mL LUTEAL 1.7 - 12.9 mIU/mL POST-MENOPAUSAL ON MHT 5.9 - 72.8 mIU/mL NOT ON MHT 12.7 - 132.2 mlU/mL MALE 0.7 - 10.8 mIU/mL Luteinizing Hormone 9.7 mIU/mL [facility] Work Phone: Comment on above: NORMAL REFERENCE RAN GES FEMALE FOLLICULAR 1.9 - 26.2 mIU/mL MID-CYCLE PEAK 22.8 - 76.1 mIU/mL LUTEAL 0.6 - 16.6 mIU/mL POST-MENOPAUSAL ON MHT 1.1 - 52.4 mIU/mL NOT ON MHT 8.6 - 61.8 mIU/mL MALE 1.2 - 10.6 mIU/mL Thyroid Stimulating Hormone (TSH) 1.38 uIU/mL 0.358-3.74 [facility] Work Phone: Serum or plasma estradiol (E 2) measurement (mass/volume)on 11-11-2021 E2 [Mass/Vol] 87.6 pg/mL [facility] Work Phone: Comment on above: NORMAL REFERENCE RAN GES FEMALE FOLLICULAR 21.4 - 164.8 pg/mL MID-CYCLE PEAK 49.9 - 367.2 pg/mL LUTEAL 40.2 - 259.0 pg/mL POST-MENOPAUSAL ON MHT <11.0 - 462.1 pg/mL NOT ON MHT <11.0 - 58.3 pg/mL MALE <11.0 - 52.5 pg/mL NOTE:[employer] HAS CONFIRMED THE DRUG FULVETRANT (FASLODEX) MAY CAUSE FALSELY ELEVATED ESTRADIOL RESULTS WHEN USING THIS TEST METHOD. IF PATIENT IS TAKING FULVESTRANT AN ALTERNATIVE METHOD SHOULD BE USED TO DETERMINE ESTRADIOL CONCENTRATION. Serum or plasma prolactin me asurement (mass/volume)on 11-11-2021 Prolactin [Mass/Vol] 3.1 ng/mL [facility] Work Phone: Comment on above: NORMAL REFERENCE RAN GES FEMALE NON- 2.2 - 30.3 ng/mL 8.1 - 347.6 ng/mL POST-MENOPAUSAL 0.7 - 31.5 ng/mL MALE 2.5 - 17.4 ng/mL Serum or plasma testosterone free measurement (mass/volume)on 11-11-2021 Testosterone Free [Mass/Vol] 4.0 pg/mL [facility] Work Phone: Comment on above: Performed at: [address] [id number] Director: Ami Gutierrez MD, Phone: [phone] BASIC METABOLIC PANELon 06-21 Anion gap [Moles/Vol] 12 mmol/L Normal 10 - 20 [facility] Comment on above: Performed By: #### B MP #### [address] [address] Calcium [Mass/Vol] 9.4 mg/dL Normal 8.6 - 10.3 [facility] Comment on above: Performed By: #### B MP #### [address] [address] Chloride [Moles/Vol] 104 mmol/L Normal 98 - 107 [facility] Comment on above: Performed By: #### B MP #### [address] [address] Creatinine [Mass/Vol] 0.70 mg/dL Normal 0.50 - 1.05 [facility] Comment on above: Performed By: #### B MP #### [address] [address] GFR- AM. >60 Normal >60 [facility] Comment on above: Result Comment: CALC ULATIONS OF ESTIMATED GFR ARE PERFORMED USING THE MDRD STUDY EQUATION FOR THE IDMS-TRACEABLE CREATININE METHODS. CLIN CHEM 2007;53:766-72 Performed By: #### B MP #### [address] [address] GFR-NON AM. >60 Normal >60 [facility] Comment on above: Performed By: #### B MP #### [address] [address] Glucose [Mass/Vol] 136 mg/dL High 74 - 99 [facility] Comment on above: Performed By: #### B MP #### [address] [address] HCO3 (Bld) [Moles/Vol] 24 mmol/L Normal 21 - 32 [facility] Comment on above: Performed By: #### B MP #### [address] [address] Potassium [Moles/Vol] 4.0 mmol/L Normal 3.5 - 5.3 [facility] Comment on above: Performed By: #### B MP #### [address] [address] Sodium [Moles/Vol] 136 mmol/L Normal 136 - 145 [facility] Comment on above: Performed By: #### B MP #### [address] [address] Urea nitrogen [Mass/Vol] 13 mg/dL Normal 6 - 23 [facility] Comment on above: Performed By: #### B MP #### [address] [address] CBC AND DIFFERENTIALon 07-18 Basophils (Bld) [#/Vol] 0.00 10*3/uL Normal 0.00 - 0.10 [facility] Comment on above: Performed By: #### C BCDF #### [address] [address] Basophils/100 WBC (Bld) 0.1 % Normal 0.0 - 2.0 [facility] Comment on above: Performed By: #### C BCDF #### [address] [address] Eosinophils (Bld) [#/Vol] 0.00 10*3/uL Normal 0.00 - 0.70 [facility] Comment on above: Performed By: #### C BCDF #### [address] [address] Eosinophils/100 WBC (Bld) 0.0 % Normal 0.0 - 6.0 [facility] Comment on above: Performed By: #### C BCDF #### [address] [address] Erythrocyte distribution width (RBC) [Ratio] 13.6 % Normal 11.5 - 14.5 [facility] Comment on above: Performed By: #### C BCDF #### [address] [address] Hematocrit (Bld) [Volume fraction] 40.5 % Normal 36.0 - 46.0 [facility] Comment on above: Performed By: #### C BCDF #### [address] [address] Hemoglobin (Bld) [Mass/Vol] 13.1 g/dL Normal 12.0 - 16.0 [facility] Comment on above: Performed By: #### C BCDF #### [address] [address] Lymphocytes (Bld) [#/Vol] 1.40 10*3/uL Normal 1.20 - 4.80 [facility] Comment on above: Performed By: #### C BCDF #### [address] [address] Lymphocytes/100 WBC (Bld) 14.9 % Normal 13.0 - 44.0 [facility] Comment on above: Performed By: #### C BCDF #### [address] [address] MCHC (RBC) [Mass/Vol] 32.3 g/dL Normal 32.0 - 36.0 [facility] Comment on above: Performed By: #### C BCDF #### [address] [address] MCV (RBC) [Entitic vol] 89 fL Normal 80 - 100 [facility] Comment on above: Performed By: #### C BCDF #### [address] [address] Monocytes (Bld) [#/Vol] 0.20 10*3/uL Normal 0.10 - 1.00 [facility] Comment on above: Performed By: #### C BCDF #### [address] [address] Monocytes/100 WBC (Bld) 2.4 % Normal 2.0 - 10.0 [facility] Comment on above: Performed By: #### C BCDF #### [address] [address] Neutrophils (Bld) [#/Vol] 7.70 10*3/uL Normal 1.20 - 7.70 [facility] Comment on above: Result Comment: Perc ent differential counts (%) should be interpreted in the context of the absolute cell counts (cells/L). Performed By: #### C BCDF #### [address] [address] Neutrophils/100 WBC (Bld) 82.6 % Normal 40.0 - 80.0 [facility] Comment on above: Performed By: #### C BCDF #### [address] [address] NUCLEATED RBC 0.3 /100 WBC Normal [facility] Comment on above: Performed By: #### C BCDF #### [address] [address] Platelets (Bld) [#/Vol] 478 10*3/uL High 150 - 450 [facility] Comment on above: Performed By: #### C BCDF #### [address] [address] RBC 4.57 x10E12/L Normal 4.00 - 5.20 [facility] Comment on above: Performed By: #### C BCDF #### [address] [address] WBC (Bld) [#/Vol] 9.4 10*3/uL Normal 4.4 - 11.3 [facility] Comment on above: Performed By: #### C BCDF #### [place] [address] CORONAVIRUS 2019 BY PCRon SARS-CoV-2 (COVID-19) RNA OSMIN+probe Ql (Unsp spec) Not detected Normal Not Detected [facility] Comment on above: Result Comment: . This test has received FDA Emergency Use Authorization (EUA) and has been verified by [facility]. This test is only authorized for the duration of time that circumstances exist to justify the authorization of the emergency use of in vitro diagnostic tests for the detection of SARS-CoV-2 virus and/or diagnosis of COVID-19 infection under section 564(b)(1) of the Act, 21 U.S.C. 360bbb-3(b)(1), unless the authorization is terminated or revoked sooner. [facility] is certified under CLIA-88 as qualified to perform high complexity testing. Testing is performed in the [facility] laboratory located at [address] [place] [address]. SARS-CoV-2/Flu/RSV Multiplex Test: Fact sheet for providers: https://www.fda.gov/media/615952/download Fact sheet for patients: https://www.fda.gov/media/950205/download Performed By: #### C OV19 #### [place] [address] Lab Specimen Source Nasal, Nasopharyngeal Normal [facility] Comment on above: Performed By: #### C OV19 #### [place] [address] Covid 19 Resultson SARS-CoV-2 (COVID-19) RNA OSMIN+probe Ql (Unsp spec) NEGATIVE COVID-19 Test Coronaviruses are common world-wide and are the cause of many common colds. SARS-COV2 is a new coronavirus that began circulating worldwide in 2019 so we are calling it COVID-19. It has been estimated that four out of five patients with COVID-19 will recover at home without the need for medical attention. Symptoms of COVID-19 may include cough, fever, shortness of breath, loss of taste or smell and other flu-like symptoms including chills, sore muscles, sore throat, and headache. Severe illness is more common in older people and people with other health problems such as high blood pressure, obesity, and immune system problems. If the test is positive, you have COVID-19. You will be contacted by the ordering physicians office and instructed to remain on home isolation, in accordance with CDC guidelines. You may also be contacted by the [facility] to see if any of your close contacts may have been exposed to the virus and need to quarantine. If the test is negative, you likely do not have COVID-19 at this time, but you still may have a different illness that can spread to other people (like Influenza, or the Flu) and could still be at risk for getting COVID-19. We recommend that you stay away from other people to limit the spread of illness until your symptoms are improving and you are fever-free for 24 hours without the use of fever lowering medications such as acetaminophen or ibuprofen. No test is 100% accurate so if you are still concerned you may have COVID-19, talk to your doctor about the need to continue to stay away from others. Medicines Unless your provider told you not to use the following: Acetaminophen (Tylenol and others) is generally safe. Anti-inflammatory medications, such as Ibuprofen (Advil or Motrin) or Naproxen (Aleve) can also be used. Fosb-djd-bydswwe cough and cold medicines can be used according to the instructions on the package. Some pbph-vzb-eimnzcx medicines also contain acetaminophen. Make sure you are not taking more than your recommended dose. For those not hospitalized, there is no specific treatment available for this illness. Antibiotics do not treat Coronaviruses. Follow-Up Follow up with your doctor by scheduling a virtual visit or consider follow-up at one of our urgent care fever clinics. If you are having difficulty breathing, or are very weak and having difficulty standing, this is a medical emergency. Call 911 or have someone take you to the nearest emergency room immediately. If possible, wear a facemask. Additional guidance from the CDC for patients who tested POSITIVE for COVID-19 How to isolate: Isolate yourself in a specific room at home and limit your contact with others. Use a separate bathroom from other members of the household, when possible. Leave home only to get essential medical care. Do not go to work, school or public areas. Avoid using public transportation, ride-sharing, or taxis. Restrict contact with pets and other animals. If you must care for your pet or be around animals while you are sick, wash your hands before and after your interaction and wear a facemask. Make sure that shared spaces in the home have good airflow, such as by an air conditioner or an opened window, weather permitting. Personal Hygiene Procedures: Wear a face mask when in the same room as other people or pets. If a face mask interferes with your breathing, others should wear a mask when sharing space with you. Frequent hand-washing: wash your hands with soap and water for at least 20 seconds. If soap and water are not available, use alcohol-based hand aquaculturist. Avoid touching your eyes, nose, and mouth with unwashed hands. Household Hygiene Procedures: Avoid sharing personal household items such as dishes, glassware, cups, eating utensils, towels or bedding with other people or pets in your home. After use, these items should be washed with soap and hot water. Disinfect all high-touch surfaces every day with antibacterial cleaning solutions such as Lysol wipes, bleach, cleansers, etc. High-touch surfaces include tabletops, doorknobs, bathroom fixtures, toilets, phones, keyboards, tablets and bedside tables. Immediately clean any surfaces that may have blood, poop or body fluids on them, using antibacterial cleaning solutions such as Lysol wipes, bleach, cleansers, etc. If clothing or bedding come into contact with blood, poop or body fluids, they should be washed immediately. Follow the directions on the laundry detergent and clothing labels but hot water is recommended when possible. Stopping home isolation precautions: If possible, consult your doctor before stopping home isolation precautions. According to the CDC, you can discontinue home isolation precautions when you have met both of these criteria: Your fever and respiratory symptoms have been gone for 24 madonna (more content not included)... Normal [facility] HCG,URINEon 07-18-2021 Beta HCG ( test) Ql (U) Negative Normal Negative [facility] Comment on above: Performed By: #### H CGU #### [place] [address] HEPATIC FUNCTION PANELon Albumin [Mass/Vol] 4.3 g/dL Normal 3.4 - 5.0 [facility] Comment on above: Performed By: #### H EPFP #### [place] [id number] ALP [Catalytic activity/Vol] 101 U/L Normal 33 - 110 [facility] Comment on above: Performed By: #### H EPFP #### [place] [id number] ALT [Catalytic activity/Vol] 47 U/L High 7 - 45 [facility] Comment on above: Result Comment: Diya ents treated with Sulfasalazine may generate falsely decreased results for ALT. Performed By: #### H EPFP #### [place] [address] AST [Catalytic activity/Vol] 21 U/L Normal 9 - 39 [facility] Comment on above: Performed By: #### H EPFP #### [place] [id number] Bilirubin [Mass/Vol] 0.9 mg/dL Normal 0.0 - 1.2 [facility] Comment on above: Performed By: #### H EPFP #### [place] [id number] Bilirubin.indirect [Mass/Vol] 0.1 mg/dL Normal 0.0 - 0.3 [facility] Comment on above: Performed By: #### H EPFP #### [place] [id number] Protein [Mass/Vol] 7.4 g/dL Normal 6.4 - 8.2 [facility] Comment on above: Performed By: #### H EPFP #### [place] [id number] LIPASEon 07-18-2021 Lipase [Catalytic activity/Vol] 15 U/L Normal 9 - 82 [facility] Comment on above: Result Comment: Ellyn puncture immediately after or during the administration of Metamizole may lead to falsely low results. Testing should be performed immediately prior to Metamizole dosing. M-fqiceg-k-benzoquinone imine (metabolite of Acetaminophen) will generate erroneously low results in samples for patients that have taken toxic doses of acetaminophen. Performed By: #### L IPAS #### [place] [id number] [place] [address] Provider Note - ED v3on 06-21 Provider Note - ED v3 Provider Note: Chart Review: ED NOTES ED NOTES: ====HPI==== Patient is a 26-year-old female who presents to the emergency department with a chief complaint of a headache and fatigue. She states that approximately 1 week ago she developed nausea, vomiting, and diarrhea. She states that this lasted approximately 2 days. She states that the symptoms resolved. She states that since she has had the vomiting and diarrhea she has had a mild headache that is progressively worsened. She states that she overall feels generally weak and fatigued. She states that her nausea and vomiting along with diarrhea have resolved. She feels that she is dehydrated and needs IV fluids. She denies any chest pain or shortness of breath. No fever or chills. No abdominal pain. No injury to her head. PMHX: Denies PSHX: denies Social HX: yes TOBACCO denies ETOH marijuana DRUGS ====Review of Systems==== 10 point system review is negative except for those specifically mentioned in history of present illness ====Physical Exam==== Constitutional/General: Alert and oriented x3, well appearing, nontoxic, and in NAD. Head: Normocephalic and atraumatic. Eyes: PERRL, EOMI, conjunctive normal, sclera nonicteric, subconjunctival layer is pink. Mouth: Oropharynx clear, handling secretions, no trismus, no asymmetry of the posterior oropharynx or uvular edema Neck: Supple, full ROM, non tender to palpation in the midline, no stridor, no crepitus, no meningeal signs. Trachea at midline. Respiratory: Lungs clear to auscultation bilaterally, no wheezes, rales, or rhonchi, not in respiratory distress. Cardiovascular: Regular rate, regular rhythm, no murmurs, gallops, or rubs, 2+ distal pulses. Chest: normal chest wall movement GI: Abdomen soft, nontender, nondistended, + BS, no organomegaly, no palpable masses, no rebound, guarding, or rigidity. Musculoskeletal: Moves all extremities x4, warm and well perfused, no clubbing, cyanosis, or edema, cap refill <3 seconds Integument: Skin warm and dry, no rashes. Lymphatic: No lymphadenopathy noted. Neurologic: GCS 15, no focal deficits, symmetric strength 5/5 in the upper and lower extremities bilaterally. Psychiatric: Normal affect. ====ED Course and Medical Decision Making==== See MDM section for review of findings & plan of care. Portions of this note were dictated by speech recognition. An attempt at proof reading was made to minimize errors. Minor errors in process design engineer may be present. Please call if questions.. HISTORY OF PRESENTING ILLNESS DEBBY is a 26 year old Female and was seen by me at 18-Jul-2021 17:47 for a chief complaint of headache (Pt complaint of headache and fatigue. Pt concerned about dehydration after getting food poisoning on . Pt states she was here sunday with hives and received prednisone.)(1). Triage Information: Most recent Vital Sign Value Date Temp (F): 98.5 07-18-2021 17:41 Temp (C): 36.9 07-18-2021 17:41 Heart Rate (beats/min): 86 07-18-2021 17:41 Respirations (breaths/min): 18 07-18-2021 17:41 SpO2 (%): 95 07-18-2021 17:41 BP Systolic (mm Hg): 128 07-18-2021 17:41 BP Diastolic (mm Hg): 77 07-18-2021 17:41 PAST MEDICAL HISTORY ALLERGIES/INTOLERANCES: Allergy Allergen: penicillin Type: Drug Reaction: Anaphylaxis HEALTH HISTORY: No documented data. OUTPATIENT MEDICATIONS: Home Medications Review Status for Reconciliation: N/A Med Status: Patient Currently Takes Medications Drug Name: Prena1 oral capsule Instructions: 1 cap(s) orally once a day Drug Name: ferrous sulfate 300 mg (60 mg elemental iron) oral tablet Instructions: null Drug Name: predniSONE 50 mg oral tablet Instructions: 1 tab(s) orally once a day x 5 days Drug Name: EPINEPHrine 0.3 mg injectable kit Instructions: 0.3 milligram(s) intramuscularly As Needed for severe allergic reaction SIGNIFICANT EVENTS: Past Medical History Description:Asthma Past Surgical History Description:pt denies MDM MDM/ED COURSE: ====HPI==== Patient is afebrile and nontoxic-appearing. She presents to the emergency department with a chief complaint of nausea, vomiting, diarrhea, and headache. Her headache was not described as thunderclap in nature. It is progressively worsened over the past few days. She states that is not constant and waxes and wanes. Patient has no neuro deficits. She appears well. She believes that she is dehydrated. Her laboratory studies are unremarkable. I did see the patient out in the waiting room which patient agreed to this. I did explain that at this time we do not have any beds available. I did discuss the results with the patient. I did report to her that her laboratory studies do not indicate that she is dehydrated at this time. I did explain to the patient that she would likely be waiting a while for a bed back in the emergency department (more content not included)... Normal [facility] Risk Screen - Adult Emergency Preferred Language: Preferred Language: Preferred Language for Discussing Health Care (patient/designee)[place] Advanced Directives: Advance Directive/DNRno Family Violence Adult: Abuse Screen: Are you or have you been threatened or abused physically, emotionally, or sexually by anyoneno Learning Assessment (Patient): Learning Assessment (Patient): Patient is Able to be Assessed for Learningyes Factors Influencing Readiness to Learnacuteness of illness Factors that Impact Ability to Learnnone Devices/Methods Used to Communicatenone Learning Preferencesaudio Cultural Considerationsnone Developmental Considerationsnone Baptism Considerationsnone Learning Assessment (Other Learner): Learning Assessment (Other Learner): Other learner availableno Pressure Injury/TB/Substance: Pressure Injury: Pressure Injury Present on Admissionno Do you have a coughno Smoking Statusmoderate user (uses 11-30 cig/day, OR 0.5-1.5 ppd, OR 2-3 cans/pouches loose leaf tobacco per week, OR 0.5-1.5 vape pods per day) Tobacco Cessation Education (provide if tobacco use within the last 12 mos) patient declined Alcohol Useoccasionally Drug Usedaily Drug 2 Usedenies Substance CommentMarijuana Admission Risk Screen: Significant IndicatorsComplete CAGE: CAGE: Is this an injured patient at a Trauma Center ([facility] [place]/[facility] [place]/ [place]): no Electronic Signatures: Marita Burt (RN) (Signed 18-Jul-2021 17:44) Authored: Preferred Language, Advanced Directives, Family Violence Adult, Learning Assessment (Patient), Learning Assessment (Other Learner), Pressure Injury/TB/Substance, Pressure Injury, CAGE Last Updated: 18-Jul-2021 17:44 by Marita Burt (MAU) [facility] Triage - EDon 07-18-2021 Triage - ED Quick Triage: Are You no Have You Given In The Last 6 Weeksno Are You Currently Breastfeedingno The patient and/or guardian verbally acknowledges placement for services into the following (when Urgent Care Service hours are operating):emergency department Chart Review: PRIMARY ASSESSMENT DEBBY HICKS's primary assessment is Within Defined Limits. The airway is open and patent. Breathing spontaneous and unlabored with clear breath sounds bilaterally. Circulation is normal with good peripheral pulses. Skin is warm and dry and color is normal for race. ARRIVAL INFORMATION Means of Arrival: Ambulatory Mode of Arrival: private vehicle Arrival From: home Accompanied By: self Language: Spoken Language Preferred: [place] Reading Language Preferred: [place] Detective Requested: no animal breeder was requested MDRO: History of MDRO: no Present on Arrival: Device Present on Arrival to ED: no Pressure Ulcer Present on Arrival to ED: no CHIEF COMPLAINT DEBBY HICKS is a Female patient with a chief complaint of headache (Pt complaint of headache and fatigue. Pt concerned about dehydration after getting food poisoning on . Pt states she was here sunday with hives and received prednisone.). Triage Date/Time: 18-Jul-2021 17:37 ALEENA: 3 Pain Rating (0-10): 8 = Severe Pain location: Headache Vital Signs: Temperature: 98.5F ( 36.9C) taken forehead Blood Pressure: 128/77 Mean: Heart Rate: 86 Respiratory Rate: 18 Pulse Oximetry: 95% on room air, no respiratory support. Height: 5 feet 7.00 inches. 170.1 CM Weight: 179.2 pounds. Calculated 81.3 kg. (stated) Calculated BMI (kg/m2): 28.098 Calculated BSA (m2) 1.96 Rhonda Coma Scale: Best Eye Response: (E4) spontaneous Best Motor Response: (M6) obeys commands Best Verbal Response: (V5) oriented Daisy Score: 15 Cough lasting greater than 3 weeks: no Allergies: yes Mask applied: yes Patient has homicidal thoughts: no Symptoms Are Negative For: anorexia, anxiety, blurred vision, congestion, eye pain, facial pain, nausea, neck pain and photophobia. Last Known Well: unknown Risk Screens Suicide Risk Screen In the Past Month: Have you wished you were or wished you could go to sleep and not wake up no In the Past Month: Have you had any actual thoughts of killing yourself no In Your Lifetime: Have you ever done anything, started to do anything, or prepared to do anything to end your life no Love Fall Scale Screening Has the patient fallen before (or is the patient in the ED as a result of a fall) has not had a fall Does the patient have an impaired gait does not have impaired gait Is the patient cognitively impaired not cognitively impaired Interventions: Love Fall Interventions: LOW INTERVENTIONS: *patient oriented to surroundings and call system, * patient/family falls education completed and documented, *patients fall status communicated during bedside handoff, *whiteboard updated, *mode of toileting discussed with patient, *bed in low position with brakes locked, *call light in reach, * non-skid footwear PAST MEDICAL HISTORY Immunization History: Last Known Tetanus Immunization: Unknown TRAVEL HISTORY Travel History Coronavirus Screening: no exposure or symptoms Travel Exposure History: NO travel to International locations in the past 30 days PAIN Pain Scale Used: NIYA Pain Rating (0-10): 8 = Severe Past Medical History: Past Medical History Reviewedyes Electronic Signatures: Marita Burt (MAU) (Signed 18-Jul-2021 17:43) Entered: Risk Screens, Pain, Arrival, ABCD, Immunizations, Travel History, Chart Review, Scores, Past Medical History Authored: Quick Triage, Risk Screens, Pain, Arrival, ABCD, Immunizations, Travel History, Chart Review, Scores, Past Medical History Last Updated: 18-Jul-2021 17:43 by Marita Burt) Normal [facility] UA MICROSCOPICon 07-18-2021 RBC 1 /HPF Normal 0-5 [facility] Comment on above: Performed By: #### U AMIC ####[place] [address] SQUAMOUS EPITH. CELLS 2 /HPF Normal [facility] Comment on above: Performed By: #### U AMIC ####[place] [address] WBC 1 /HPF Normal 0-5 [facility] Comment on above: Performed By: #### U AMIC ####[place] [address] URINALYSIS WITH CULTURE IF I NDICATEDon 07-18-2021 Appearance (U) CLEAR Normal CLEAR [facility] Comment on above: Performed By: #### U ARFX #### [place] [address] Bilirubin Ql (U) Negative Normal NEGATIVE [facility] Comment on above: Performed By: #### U ARFX #### [place] [address] Color (U) Yellow Normal STRAW,YELL OW [facility] Comment on above: Performed By: #### U ARFX #### [place] [address] Glucose Ql (U) Negative Normal NEGATIVE [facility] Comment on above: Performed By: #### U ARFX #### [place] [address] Hemoglobin Ql (U) SMALL(1+) Abnormal NEGATIVE [facility] Comment on above: Performed By: #### U ARFX #### [place] [address] Ketones Ql (U) Negative Normal NEGATIVE [facility] Comment on above: Performed By: #### U ARFX #### [place] [address] Leukocyte esterase Test strip Ql (U) Negative Normal NEGATIVE [facility] Comment on above: Performed By: #### U ARFX #### [place] [address] Nitrite Ql (U) Negative Normal NEGATIVE [facility] Comment on above: Performed By: #### U ARFX #### [address] [address] pH (U) 5.0 [pH] Normal 5.0 - 8.0 [facility] Comment on above: Performed By: #### U ARFX #### [address] [address] Protein Ql (U) Negative Normal NEGATIVE [facility] Comment on above: Performed By: #### U ARFX #### [address] [address] Specific gravity (U) [Rel density] 1.018 Normal 1.005 - 1.035 [facility] Comment on above: Performed By: #### U ARFX #### [address] [address] Urobilinogen (U) [Mass/Vol] mg/dL Normal 0.0 - 1.9 [facility] Comment on above: Performed By: #### U ARFX #### [address] [address] Provider Note - ED v3on 11-2 Provider Note - ED v3 Provider Note: Chart Review: ED NOTES ED NOTES: HPI: Patient presents ER today with concerns of itching and swelling of the lips. She notes that when her son was born several years ago about 4 months after delivery she had about 2 weeks of similar episodes of hives and itching and after follow-up was told that they did not know what caused it and she was given an EpiPen which she never did use. She is about 6 months now and for the last 3 weeks she complains of hives and itching which typically come on at night and resolves by morning. She states that today was the first time she noticed swelling in her lips and she presents to the ER. She denies taking any other medications and denies any known allergies. ROS: All systems are negative other than as noted in HPI. Physical Exam I have reviewed the triage vital signs. Const: Well nourished, well developed, appears stated age, no acute distress Eyes: PERRL, EOM intact, no conjunctival injection, vision grossly normal HENT: Neck supple without meningismus , Moist mucous membranes, no pharyengeal swelling or exudate, swelling of lips with no swelling of the oropharynx. CV: Regular rate and rhythm, Warm, well-perfused extremities. Chest non tender RESP: Lungs clear bilaterally, Unlabored respiratory effort GI: soft, non-tender, non-distended, no masses : MSK: No gross deformities appreciated Back: Non tender, no pain with ROM Skin: Warm, dry. No rashes, patient has multiple excoriated areas consistent with her previous scratching with no obvious urticarial rash at this time. Neuro: Alert and oriented x4, GCS 15 , mixer and scaler II-XII grossly intact. Sensation and motor function of extremities grossly intact. Psych: Appropriate mood and affect. I have reviewed and confirmed nurses/medics notes for patient past, social and family history. Portions of this note were dictated by speech recognition. An attempt at proof reading was made to minimize errors. Minor errors in process design engineer may be present. HISTORY OF PRESENTING ILLNESS DEBBY is a 26 year old Female and was seen by me at 12-Jul-2021 16:02 for a chief complaint of hives (past 3 weeks has been having hives, today noticed swelling to lips and left eye around 1530. 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 Triage Information: Most recent Vital Sign Value Date Temp (F): 99.4 07-12-2021 16:02 Temp (C): 37.4 07-12-2021 16:02 Heart Rate (beats/min): 97 07-12-2021 16:02 Respirations (breaths/min): 18 07-12-2021 16:02 SpO2 (%): 99 07-12-2021 16:02 BP Systolic (mm Hg): 125 07-12-2021 16:02 BP Diastolic (mm Hg): 85 07-12-2021 16:02 PAST MEDICAL HISTORY ALLERGIES/INTOLERANCES: Allergy Allergen: penicillin Type: Drug Reaction: Anaphylaxis HEALTH HISTORY: No documented data. OUTPATIENT MEDICATIONS: Home Medications Review Status for Reconciliation: N/A Med Status: Patient Currently Takes Medications Drug Name: Prena1 oral capsule Instructions: 1 cap(s) orally once a day Drug Name: ferrous sulfate 300 mg (60 mg elemental iron) oral tablet Instructions: null SIGNIFICANT EVENTS: Past Medical History Description:Asthma Past Surgical History Description:pt denies MDM MDM/ED COURSE: 1809-on initial presentation patient did not have any obvious swelling of the posterior pharynx but have swelling of the lips. Patient did not have urticarial rash otherwise. As she had taken approximately 50 mg of Benadryl at home she was given 125 mg of Solu-Medrol, 20 mg of Pepcid, and a liter of fluids. On reevaluation at this time patient's labs are less swollen than on initial presentation and patient states she is feeling much better. Patient was discharged home with a prescription for prednisone and a refill of her EpiPen's. Patient comfortable with discharge at this time. As your symptoms have improved here in the emergency department I feel that you are stable for discharge home. I recommend that you continue to use Benadryl as needed for allergy type symptoms along with the prednisone. Your next dose of prednisone is due tomorrow morning. You have also been given a prescription for refill of your EpiPen's. Please follow-up closely with your family doctor and otherwise return immediately to the nearest ER for any new or worsening concerns. DISPOSITION Diagnosis/Annotation: ED Dx Name:Allergic reaction Code:T78.40XA Disposition: discharged Type: home CONSULT CRITICAL CARE TIME Is this a critically ill patient: no Electronic Signatures: Fuasto Grace I (VIDEO CAMERA OPERATOR-CIVIL MANAGER) (Signed 12-Jul-2021 18:18) Authored: ED Notes, HPI, PMH, [facility]/ED Course, Clinical Impression, Attestation, Chart Review, Scores Last Updated: 12-Jul-2021 18:18 by Fausto Grace I (VIDEO CAMERA OPERATOR-CIVIL MANAGER) References: 1. Data Referenced From Triage - ED 12-Jul-2021 16:02 [facility] Risk Screen - Adult Emergenc yon 07-12-2021 Risk Screen - Adult Emergency Preferred Language: Preferred Language: Preferred Language for Discussing Health Care (patient/designee)[place] Advanced Directives: Advance Directive/DNRno Family Violence Adult: Abuse Screen: Are you or have you been threatened or abused physically, emotionally, or sexually by anyoneno Learning Assessment (Patient): Learning Assessment (Patient): Patient is Able to be Assessed for Learningyes Factors Influencing Readiness to Learnacuteness of illness Factors that Impact Ability to Learnnone Devices/Methods Used to Communicatenone Learning Preferencesaudio Cultural Considerationsnone Developmental Considerationsnone Baptism Considerationsnone Learning Assessment (Other Learner): Learning Assessment (Other Learner): Other learner availableno Pressure Injury/TB/Substance: Pressure Injury: Do you have a coughno Smoking Statuslight user (uses <10 cig/day, OR <0.5 ppd, OR 1 can/pouch loose leaf tobacco per week, OR <0.5 vape pods per day) Tobacco Cessation Education (provide if tobacco use within the last 12 mos) patient declined Alcohol Useoccasionally Drug Useweekly [facility] Admission Risk Screen: Significant IndicatorsComplete CAGE: CAGE: Is this an injured patient at a Trauma Center ([facility] [place]/[facility] [place]/ [place]): no Electronic Signatures: Anita Felix (RN) (Signed 12-Jul-2021 16:09) Authored: Preferred Language, Advanced Directives, Family Violence Adult, Learning Assessment (Patient), Learning Assessment (Other Learner), Pressure Injury/TB/Substance, Pressure Injury, CAGE Last Updated: 12-Jul-2021 16:09 by Anita Felix (RN) [facility] Triage - EDon 07-12-2021 Triage - ED Quick Triage: Are You no Have You Given In The Last 6 Weeksno Are You Currently Breastfeedingyes Chart Review: ARRIVAL INFORMATION Means of Arrival: Ambulatory Mode of Arrival: private vehicle Arrival From: home Language: Spoken Language Preferred: [place] CHIEF COMPLAINT DEBBY HICKS is a Female patient with a chief complaint of hives (past 3 weeks has been having hives, today noticed swelling to lips and left eye around 1530. 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 Triage Date/Time: 12-Jul-2021 16:03 ALEENA: 3 Pain Rating (0-10): 0 = None Vital Signs: Temperature: 99.4F ( 37.4C) taken forehead Blood Pressure: 125/85 Mean: Heart Rate: 97 Respiratory Rate: 18 Pulse Oximetry: 99% on room air, no respiratory support. Height: 5 feet 7.00 inches. 170.1 CM Weight: 180.3 pounds. Calculated 81.8 kg. (stated) Calculated BMI (kg/m2): 28.271 Calculated BSA (m2) 1.97 Daisy Coma Scale: Best Eye Response: (E4) spontaneous Best Motor Response: (M6) obeys commands Best Verbal Response: (V5) oriented Rhonda Score: 15 Allergies: yes BIOMEDICAL SPECIALIST History: control Patient has homicidal thoughts: no Risk Screens Suicide Risk Screen In the Past Month: Have you wished you were or wished you could go to sleep and not wake up no In the Past Month: Have you had any actual thoughts of killing yourself no In Your Lifetime: Have you ever done anything, started to do anything, or prepared to do anything to end your life no Love Fall Scale Screening Has the patient fallen before (or is the patient in the ED as a result of a fall) has not had a fall Does the patient have an impaired gait does not have impaired gait Is the patient cognitively impaired not cognitively impaired Interventions: Love Fall Interventions: LOW INTERVENTIONS: *patient oriented to surroundings and call system, * patient/family falls education completed and documented, *patients fall status communicated during bedside handoff, *whiteboard updated, *mode of toileting discussed with patient, *bed in low position with brakes locked, *call light in reach, * non-skid footwear TRAVEL HISTORY Travel History Coronavirus Screening: no exposure or symptoms Travel Exposure History: NO travel to International locations in the past 30 days PAIN Pain Scale Used: NIYA Pain Rating (0-10): 0 = None Past Medical History: Past Medical History Reviewedyes pt denies: Past Surgical History, Active Asthma: Past Medical History, Active Electronic Signatures: Anita Felix) (Signed 12-Jul-2021 16:08) Entered: Risk Screens, Pain, Arrival, Travel History, Chart Review, Scores, Past Medical History Authored: Quick Triage, Risk Screens, Pain, Arrival, Travel History, Chart Review, Scores, Past Medical History Last Updated: 12-Jul-2021 16:08 by Anita Felix (MAU) Normal [facility] CBC W/ MANUAL DIFFon 020 CELL COUNT 100 Normal [facility] Comment on above: Performed By: #### 2 [id number] #### [facility],[address] [place] [address] EO 1.0 % Normal 0 - 4 [facility] Comment on above: Performed By: #### 2 82905 #### [facility],[address] [place] [address] MONOS 8 % Normal 0 - 8 [facility] Comment on above: Performed By: #### 2 01155 #### [facility],[address] [place] [address] SEGS 69 % Normal 47 - 70 [facility] Comment on above: Performed By: #### 2 36177 #### [facility],[address] [place] [address] Basophils (Bld) [#/Vol] 0.00 x10EE3/UL Normal 0. 00 - 0.10 [facility] Comment on above: Result Comment: MANU AL DIFFERENTIAL Performed By: #### 2 65877 #### [facility],[address] [place] [address] Basophils/100 WBC (Bld) 0.2 % Normal 0.0 - 2.0 [facility] Comment on above: Performed By: #### 2 00456 #### [facility],[address] [place] [address] CBC W/ MANUAL DIFF Normal [facility] Comment on above: Result Comment: CBC MANUAL DIFF Performed By: #### 2 33500 #### [facility],[address] [place] [address] Eosinophils (Bld) [#/Vol] 0.10 x10EE3/UL Normal 0.00 - 0.50 [facility] Comment on above: Performed By: #### 2 64677 #### [facility],[address] [place] [address] Eosinophils/100 WBC (Bld) 1.0 % Normal 0.0 - 7.0 [facility] Comment on above: Performed By: #### 2 39336 #### [facility],[address] [place] [address] Lymphocytes (Bld) [#/Vol] 1.80 x10EE3/UL Normal 0.80 - 2.80 [facility] Comment on above: Performed By: #### 2 72263 #### [facility],[address] [place] [address] Lymphocytes/100 WBC (Bld) 22 % Normal 20 - 40 [facility] Comment on above: Performed By: #### 2 59591 #### [facility],[address] [place] [address] Lymphocytes/100 WBC (Bld) 16.1 % Low 20.0 - 45.0 [facility] Comment on above: Performed By: #### 2 96581 #### [facility],[address] [place] [address] MCH (RBC) [Entitic mass] 30 pg Normal 27 - 33 [facility] Comment on above: Performed By: #### 2 34800 #### [facility],[address] [place] [address] MCHC (RBC) [Mass/Vol] 34 X10 3 Normal 32 - 36 [facility] Comment on above: Performed By: #### 2 60613 #### [facility],[address] [place] [address] MCV (RBC) [Entitic vol] 87 fl Normal 80 - 99 [facility] Comment on above: Performed By: #### 2 37071 #### [facility],[address] [place] [address] Monocytes (Bld) [#/Vol] 0.70 x10EE3/UL Normal 0. 20 - 1.00 [facility] Comment on above: Performed By: #### 2 48757 #### [facility],[address] [place] [address] MONOS % 6.1 % Normal 0.0 - 10.0 [facility] Comment on above: Performed By: #### 2 54815 #### [facility],[address] [place] [address] Morphology Damon (Bld) [Interp] NORMAL Normal [facility] Comment on above: Performed By: #### 2 38675 #### [facility],[address] [place] [address] Neutrophils (Bld) [#/Vol] 8.30 x10EE3/UL High 1.50 - 7.10 [facility] Comment on above: Performed By: #### 2 01570 #### [address] [address] Neutrophils/100 WBC (Bld) 76.6 % High 46.0 - 76.0 [facility] Comment on above: Performed By: #### 2 91165 #### [facility],[address] [place] [address] Platelet mean volume (Bld) [Entitic vol] 6.4 fl Low 6.6 - 10.5 [facility] Comment on above: Result Comment: AUTO MATED DIFFERENTIAL Performed By: #### 2 50418 #### [address] [address] Platelets (Bld) [#/Vol] 379 x10EE3/UL Normal 150 - 450 [facility] Comment on above: Performed By: #### 2 88476 #### [facility],[address] [place] [address] RBC (Bld) [#/Vol] 3.81 x 10EE6/UL Low 4.10 - 5.30 [facility] Comment on above: Performed By: #### 2 03825 #### [facility],[address] [place] [address] RDW/CV 13.5 % Normal 12.0 - 15.6 [facility] Comment on above: Performed By: #### 2 60566 #### [address] [address] WBC (Bld) [#/Vol] 10.9 x 10EE3/UL High 4.5 - 10.[address] [facility] Comment on above: Performed By: #### 2 61391 #### [facility],[address] [place] [address]67 CMP with eGFRon 08-12-2020 Age - Reported 25 years Normal [facility] Comment on above: Performed By: #### 2 70978 #### [facility],[address] [place] [address] Albumin [Mass/Vol] 3.4 g/dL Normal 3.4 - 5.0 [facility] Comment on above: Performed By: #### 2 76432 #### [facility],[address] [place] [address] Albumin/Globulin [Mass ratio] 0.9 {ratio} Normal 0.9 - 1.6 [facility] Comment on above: Performed By: #### 2 74684 #### [facility],[address] [place] [address] ALK PHOS 44 U/L Low 46 - 116 [facility] Comment on above: Performed By: #### 2 62181 #### [facility],[address] [place] [address] 04265 ALT/SGPT 20 U/L Normal 14 - 59 [facility] Comment on above: Performed By: #### 2 85079 #### [facility],[address] [place] [address] 68318 Anion gap [Moles/Vol] 15 mmol/L Normal 10 - 20 [facility] Comment on above: Performed By: #### 2 27898 #### [facility],[address] [place] [address] 34951 AST/SGOT 20 U/L Normal 13 - 39 [facility] Comment on above: Performed By: #### 2 00103 #### [facility],[address] [place] [address] 04762 B/C RATIO 12 ratio Normal 0 - 30 [facility] Comment on above: Performed By: #### 2 13969 #### [facility],[address] [place] [address] 12145 Bilirubin [Mass/Vol] 0.8 mg/dL Normal 0.2 - 1.0 [facility] Comment on above: Performed By: #### 2 56844 #### [facility],[address] [place] [address] 16588 Calcium [Mass/Vol] 9.1 mg/dL Normal 8.5 - 10.1 [facility] Comment on above: Performed By: #### 2 72467 #### [facility],[address] [place] [address] 36677 Chloride [Moles/Vol] 102 mmol/L Normal 98 - 107 [facility] Comment on above: Performed By: #### 2 09934 #### [address] [address] CO2 [Moles/Vol] 24.0 mmol/L Normal 21.0 - 32.0 [facility] Comment on above: Performed By: #### 2 63400 #### [facility],[address] [place] [address] 31521 Creatinine [Mass/Vol] 0.5 mg/dL Low 0.5 - 1.0 [facility] Comment on above: Performed By: #### 2 28146 #### [address] [address] GFR/1.73 sq M predicted among non-blacks MDRD (S/P/Bld) [Vol rate/Area] mL/min/{1.73_m2} Normal 60 - 999 [facility] Comment on above: Performed By: #### 2 14101 #### [facility],[address] [place] [address] 18039 Result Comment: ACCO RDING TO THE NATIONAL KIDNEY DISEASE EDUCATION PROGRAM(NKDE), A NORMAL eGFR IS A VALUE GREATER THAN OR EQUAL TO 60 ML/MIN/1.73 SQ METERS. CHRONIC KIDNEY DISEASE: <60mL/MIN/1.73 SQ METERS KIDNEY FAILURE: <15mL/MIN/1.73 SQ METERS THIS TEST SHOULD ONLY BE USED FOR PATIENTS 18 YEARS OF AGE AND OLDER. GFR/1.73 sq M predicted among non-blacks MDRD (S/P/Bld) [Vol rate/Area] Normal [facility] Comment on above: Result Comment: COMP REHENSIVE METABOLIC PANEL Performed By: #### 2 04147 #### [facility],[address] [place] [address] 87380 Globulin (S) [Mass/Vol] 3.7 g/dL Normal 1.5 - 3.8 [facility] Comment on above: Performed By: #### 2 03446 #### [facility],[address] [place] [address] 01034 Glucose [Mass/Vol] 84 mg/dL Normal 74 - 106 [facility] Comment on above: Performed By: #### 2 35539 #### [facility],[address] [place] [address] 04964 Potassium [Moles/Vol] 3.6 mmol/L Normal 3.5 - 5.1 [facility] Comment on above: Performed By: #### 2 23137 #### [facility],[address] [place] [address] 56702 Protein [Mass/Vol] 7.1 g/dL Normal 6.4 - 8.2 [facility] Comment on above: Performed By: #### 2 95807 #### [facility],[address] [place] [address] 48300 Sodium [Moles/Vol] 137 mmol/L Normal 136 - 145 [facility] Comment on above: Performed By: #### 2 89291 #### [facility],[address] [place] [address] 75815 Urea nitrogen [Mass/Vol] 6 mg/dL Low 7 - 18 [facility] Comment on above: Performed By: #### 2 48998 #### [facility],[address] [place] [address] BRAIN W/O CONTRAST 07-21 CT BRAIN W/O CONTRAST [address] [address] Patient: DEBBY HICKS Phone#: : 1995 Age: 25 Gender: F Pt. Type: ER Account: [id number] Location: 052 Ordering: [employer] Exam Date: 08/12/2020/16:45 Family Phys: Charge Code: [id number] Physician: [facility] Order #: [id number] DLP Dose#: 52.7 PROCEDURE: CT BRAIN WITHOUT CONTRAST COMPARISON: None. INDICATIONS: Trauma. TECHNIQUE: CT images were obtained without contrast material. All CT scans at this facility use dose modulation, iterative reconstruction, and/or weight based dosing when appropriate to reduce radiation dose to as low as reasonably achievable. IV CONTRAST: No IV contrast used,0ml TOTAL DOSE: 52.7 CTDIvol(mGy) FINDINGS: Multiple facial piercings and jewelry create streak artifact limiting evaluation. Artifact most significant at the posterior fossa, brainstem and skull base. CEREBRUM: No appreciable intracranial hemorrhage. No edema or midline shift. CEREBELLUM: Limited evaluation by streak artifact, no appreciable intracranial hemorrhage, edema or midline shift. BRAINSTEM: Limited evaluation due to artifact. CSF SPACES: Ventricles, cisterns, and sulci are appropriate for age. No hydrocephalus, subarachnoid hemorrhage, or mass. SKULL: No mass or other significant visible lesion. SINUSES: Mucous retention cyst seen in the maxillary sinuses. ORBITS: Limited views are unremarkable. OTHER: Left frontal scalp soft tissue swelling. CONCLUSION: 1. Within the limits of artifact no appreciable acute intracranial abnormality. 2. Left frontal scalp soft tissue swelling Continued Report - Page 2 of 2 Patient: DEBBY HICKS Phone#: : 1995 Age: 25 Gender: F Pt. Type: ER Account: [id number] Location: 052 Ordering: [employer] Exam Date: 08/12/2020/16:45 Family Phys: Charge Code: [id number] Physician: [facility] Order #: [id number] DLP Dose#: 52.7 Dictated by: Griselda Boyce MD on 08/12/2020 at 17:00 Approved by: Griselda Boyce MD on 08/12/2020 at 17:[address] [facility] [address] CERVICAL W/O CONTRASTon 1 10-13-2019 CT CERVICAL W/O CONTRAST [place] [address] Patient: DEBBY HICKS Phone#: : 1995 Age: 25 Gender: F Pt. Type: ER Account: [id number] Location: [facility] Ordering: DANE BLANCSA Exam Date: 08/12/2020/16:45 Family Phys: Charge Code: [id number] Physician: [facility] Order #: [id number] DLP Dose#: 11.4 mGy PROCEDURE: CT CERVICAL WITHOUT CONTRAST COMPARISON: None. INDICATIONS: Trauma. TECHNIQUE: Multi-planar CT images were created without intravenous contrast. All CT scans at this facility use dose modulation, iterative reconstruction, and/or weight based dosing when appropriate to reduce radiation dose to as low as reasonably achievable. IV CONTRAST: No IV contrast used,0ml TOTAL DOSE: 11.4 CTDIvol(mGy) FINDINGS: Streak artifact from patient jewelry and facial piercings limit the evaluation. CRANIOCERVICAL AREA: Limited from streak artifact PARASPINAL AREA: Within the limitations of the exam no appreciable abnormality. BONES: Vertebral bodies are maintained in height and alignment. No fracture or subluxation. The dens is intact. The lateral masses are symmetric. CERVICAL DISC LEVELS: C2-C3 to C7-T1: No significant disc/facet abnormality, spinal stenosis, or foraminal stenosis. CONCLUSION: 1. Within the limits of the exam no appreciable acute osseous abnormality. Dictated by: Griselda Boyce MD on 08/12/2020 at 17:05 Approved by: Griselda Boyce MD on 08/12/2020 at 17:09 [facility] BIOMEDICAL SPECIALIST - Office Visiton 110 BIOMEDICAL SPECIALIST - Office Visit Chief Complaint Patient is here today for viability scan. LMP 04-22-2020. No concerns. History of Present IllnessPresents for ultrasound for viability. Patient has nausea and vomiting for several weeks. Denies any abdominal pain or vaginal bleeding. Review of Systems Review of Systems: Constitutional: No fever or chills Respiratory: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
[2025-03-05 21:45] VITALS: BP 130/87; PULSE 73; RESP 14; TEMP 36.8; O2SAT 100
== END 2025-03-05 21:49 | disposition home or self-care (01) ==
LOC: ED 21:01
PROVIDERS: Emergency Provider Surgery; Visit Provider Surgery
DX: N61.0 Mastitis without abscess (principal); N64.4 Mastodynia; Z79.899 Other long term (current) drug therapy; Z87.891 Personal history of nicotine dependence
CPT/HCPCS: 99282

== ENCOUNTER 2025-05-17 01:28 | Emergency (ER) | payer MEDICAID, SELFPAY ==
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
[2025-05-17 01:29] VITALS: BP 115/82; PULSE 81; RESP 18; TEMP 36.6; O2SAT 98; BMI 33.1
--- NOTE | 2025-05-17 02:16 | US_ITS ---
PROCEDURE: TRANSVAGINAL NON- 05/17/2025 REASON FOR EXAM: SEVERE PELVIC PAIN AFTER INTERCOURSE, R/O TORSION TECHNIQUE: Procedure Code: USTVAG Modality: US Procedure: TRANSVAGINAL NON- COMPARISON: None. FINDINGS: The uterus measures 9.4 x 6.8 x 4.4 cm. The right ovary measures 4.2 x 3.6 x 2.2 cm. The left ovary measures 4.2 x 3.7 x 1.9 cm. Intrauterine device is identified in the fundus. Mild amount of free fluid surrounding the left adnexal region. The endometrium is normal in thickness measuring 6 mm. Scattered benign chronic nabothian cysts of the cervix with the largest measuring 1 cm. Complex hypoechoic lesion/hemorrhagic material in the right adnexal lesion measuring 7.2 x 5.1 x 3.1 cm. Complex hypoechoic lesion/hemorrhagic material in the left adnexal region measuring 7.4 x 2.5 x 3.3 cm. Normal bilateral ovarian flow without evidence of ovarian torsion. US/Transvaginal Non- IMPRESSION: Normal bilateral ovarian flow. Complex hypoechoic lesion/hemorrhagic material in the right adnexal lesion korey uring 7.2 x 5.1 x 3.1 cm. Complex hypoechoic lesion/hemorrhagic material in the left adnexal region measu ring 7.4 x 2.5 x 3.3 cm. Nonspecific finding which can be secondary to complicated adnexal hemorrhagic l esions/endometriomas or the presence of hemorrhagic material in the adnexal regions. Findings can be further evaluated by means of MRI with gadolinium on elective basis. CT scan of the abdomen and pelvis with contrast is an alternative modal ity for evaluation on emergency basis although usually CT is limited in evaluating pelvic organs and adnexal regions. Reading [facility]
--- NOTE | 2025-05-17 02:18 | EDS_ITS ---
HPI HPI - GI History of Present Illness Chief Complaint: Abd Pain Informant: patient Narrative Narrative: Patient is a 30-year-old female presenting with pelvic pain and pressure. - Onset around 2100 tonight, lasting 4-6 hours. Pain began a few minutes after intercourse. - Describes pain as initially similar to menstrual cramps, worsening over time. - Pain localized to lower abdomen, with pressure in the rectal area, exacerbated by sitting up or moving. - Pain radiates slightly to the back, more pronounced on the left side, and feels above the bladder. - Associated symptoms include bloating, dehydration, and nausea; denies emesis. - Denies dysuria, vaginal bleeding, or discharge. - Attempted a bowel movement, but still feels abdominal discomfort. - Tried showering for relief, which usually helps, but experienced severe pain instead. - Denies history of ovarian cysts. - Reports three normal pregnancies. - LMP approximately 2.5 weeks ago; cycles are regular. - Denies known ; has had a vasectomy, and she uses Mirena. - Denies any previous abdominal surgeries. [facility] Medical History (Updated 05/17/25 @ 07:[address] Bola Pack MD) Bipolar 1 disorder Chlamydia infection affecting Asthma Psychiatric disorder Anxiety Home Medications ?Medication ?Instructions ?Recorded ?Last Taken ?Type aripiprazole 2 mg tablet 2 mg PO QHS #90 tabs 5 Unknown Rx bupropion HCl 150 mg 24 hr tablet, 150 mg PO QAM #30 t abs 05/01/25 Unknown Rx extended release (Wellbutrin XL) hydrocodone-acetaminophen 5-325mg 1 tab PO Q6H PRN PRN Pain 3 days 05/17/25 Unknown Rx 5mg-325mg #10 TABLETS Allergy/AdvReac Type Severity Reaction Status Date / Time kiwi Allergy Anaphylaxis Verified 05/17/25 01:28 Penicillins Allergy Anaphylaxis Verified 05/17/25 01:28 Family History (Updated 03/19/25 @ 14:44 by Zakia Paidlla) Other Anxiety Arthritis Asthma CVA (cerebral vascular accident) Depression Diabetes High cholesterol Hypertension Mental disorder Surgical History History of surgery Social History (Updated 03/19/25 @ 14:44 by Zakia Padilla) Smoking Status: Former smoker alcohol intake: current alcohol intake frequency: holidays/special occasions only substance use type: marijuana ROS ROS ED Constitutional Constitutional ED: Denies chills or fever(s) Eyes Eyes: Denies change in vision or diplopia ENT ENT ED: Denies rhinorrhea or sore throat Cardiovascular Cardiovascular: Denies chest pain or palpitations Respiratory/Chest Respiratory/Chest: Denies cough or dyspnea Gastrointestinal Gastrointestinal: Reports abdominal pain and nausea; Denies diarrhea or vomiting Genitourinary Genitourinary ED: Reports as per HPI; Denies dysuria, hematuria, vaginal bleeding or vaginal discharge Musculoskeletal Musculoskeletal: Reports back pain; Denies neck pain Integumentary Denies abscess or rash Neurologic Neurologic: Denies headache(s), paresthesias or weakness Psychiatric Psychiatric: Denies anxiety or suicidal thoughts EXAM Physical Exam Const Vital Signs: 05/17/25 01:29 05/17/25 03:28 05/17/25 05:00 Temperature 97.8 F Temperature Source Oral Pulse Rate 81 74 77 Respiratory Rate 18 16 16 Blood Pressure 115/82 H 102/68 98/60 Blood Pressure Mean 93 79 72 Pulse Ox 98 99 98 Oxygen Delivery Method Room Air Room Air Positive well nourished and well developed Constitutional Narrative: Mild painful distress General Appearance ED: well developed HEENT Reports moist mucous membranes normocephalic and atraumatic Eyes PERRL and EOMs intact bilaterally Neck full ROM and supple Resp normal respiratory effort and clear to auscultation bilaterally Cardio regular rate, regular rhythm and no murmurs GI non-distended GI Narrative: Non-focal diffuse moderate-severe pelvic tenderness, non-tender upper abdomen, no distention, normal bowel sounds, no CVA tenderness bilaterally. Auscultation: normoactive bowel sounds Palpation: soft Speculum Exam - Vagina: Negative for vaginal bleeding or vaginal discharge Back/Spine no CVA tenderness General Back: other FROM Extremity normal to inspection General Extremety ED: Negative for edema, pulses abnormal or tenderness General Extremity: Negative for edema or pulses abnormal Neuro oriented x3, CN's II-XII intact bilaterally and no sensory deficits noted Sensorium / Orientation: awake and alert Motor Exam: strength 5/5 throughout Psych Mood & Affect: anxious Skin no rashes or lesions noted and no wounds MDM MDM MDM Narrative Medical decision making narrative: test was obtained and is negative, ruling out ectopic. My concern, in this context, is that in the worst case she could have a torsed ovary or an actively hemorrhagic cyst. Although the patient presented around midnight or 1:00 AM, I felt it was appropriate to call in ultrasound for an emergent transvaginal ultrasound. In the meantime, blood work and a urinalysis were obtained, and she was given IV analgesics?morphine and Toradol?which greatly helped. She remained stable subsequently. I reviewed the blood work, which shows a nonspecific leukocytosis without bands; the rest of her labs, including the urinalysis, are normal. I also reviewed the ultrasound images and report, which I agree with. It shows signs of hemorrhagic tissue in both adnexa that may be bilateral endometriomas. There is good ovarian blood flow throughout and no sign of torsion. I discussed all this with Dr. Cardozo, who was information systems analyst for unassigned gynecology. The patient used to be seen at [facility] (a practice that dissolved) and has made an appointment for the end of May with [facility], though she is not yet established there. Dr. Cardozo agrees that, because the patient has a Mirena, no additional exogenous hormonal treatment is needed at this time; he recommends pain control. Given there is only a minimal amount of free fluid, he also agrees the patient does not require emergent intra-abdominal imaging?especially given that her vitals aren't normal, she is doing better, and I am not concerned about significant intraperitoneal hemorrhage. I discussed all of this with the patient, and she is comfortable going home with a prescription for analgesics and following up with gynecology. Lab Data Attestation: I reviewed the patient's lab results. Labs: Laboratory Results - last 24 hr 05/17/25 05/17/25 02:29 02:50 WBC 14.6 H RBC 4.05 L Hgb 11.7 L Hct 35.9 L MCV 88.6 MCH 28.9 MCHC 32.6 RDW Std Deviation 43.3 RDW Coeff of Kate 13.3 Plt Count 371 MPV 8.3 Immature Gran % (Auto) 0.400 Neut % (Auto) 76.0 H Lymph % (Auto) 17.4 L Hawkins % (Auto) 5.2 Eos % (Auto) 0.7 Baso % (Auto) 0.3 Absolute Neuts (auto) 11.1 H Absolute Lymphs (auto) 2.54 Nucleated RBC % 0 Sodium 137 Potassium 3.7 Chloride 103 Carbon Dioxide 23.3 Anion Gap 11 BUN 9 Creatinine 0.82 Estim Creat Clear Calc 115.32 Est GFR (MDRD) Non-Af 99 BUN/Creatinine Ratio 11.4 Glucose 113 H Calcium 9.5 Serum , Qual NEGATIVE Urine Color Yellow Urine Clarity Sl. Cloudy Urine pH 6.0 Ur Specific Hankamer 1.020 Urine Protein 30 H Urine Glucose (UA) Normal Urine Ketones Negative Urine Occult Blood Negative Urine Nitrite Negative Urine Bilirubin Negative Urine Urobilinogen 1 H Ur Leukocyte Esterase Negative Urine RBC 0 SEEN Urine WBC 0 SEEN Ur Squamous Epith Cells 0 SEEN Urine Bacteria 1+ Urine Mucus 0 SEEN Radiography Diagnostic Testing: Clinical Impression(s) from Imaging Studies Transvaginal US 05/17/25 02:16 IMPRESSION: Normal bilateral ovarian flow. Complex hypoechoic lesion/hemorrhagic material in the right adnexal lesion measuring 7.2 x 5.1 x 3.1 cm. Complex hypoechoic lesion/hemorrhagic material in the left adnexal region measuring 7.4 x 2.5 x 3.3 cm. Nonspecific finding which can be secondary to complicated adnexal hemorrhagic lesions/endometriomas or the presence of hemorrhagic material in the adnexal regions. Findings can be further evaluated by means of MRI with gadolinium on elective basis. CT scan of the abdomen and pelvis with contrast is an alternative modality for evaluation on emergency basis although usually CT is limited in evaluating pelvic organs and adnexal regions. Reading Location: [place] [address] Discharge Plan Triage Chief Complaint: Abd Pain ED Provider: Bola Pack Dx/Rx/DC Orders Clinical Impression: Endometriosis of both ovaries, Pelvic pain in female Instructions: ED Endometriosis Prescriptions: New hydrocodone-acetaminophen 5-325 mg tablet 1 tab PO Q6H PRN PRN (Reason: Pain) 3 Days Qty: 10 0RF No Action aripiprazole 2 mg tablet 2 mg PO QHS Qty: 90 1RF bupropion HCl [Wellbutrin XL] 150 mg tablet extended release 24 hr 150 mg PO QAM Qty: 30 1RF Primary Care Provider: Care Physician,No Primary Referrals: Tulio Cardozo MD [Med Staff - Active Staff, Obstetrics-Gynecology (OBGYN)] - As soon as possible Activity Restrictions/Additional Instructions: - Fill and take your prescribed pain medication as directed to manage pelvic discomfort. - Continue with your Mirena IUD; no additional hormone treatment is needed at this time. - Your test and urine analysis were negative and other lab results were normal. - Pelvic ultrasound showed no ovarian torsion, identified blood-containing cysts (likely endometriomas) on both ovaries, and only a small amount of free fluid. - Follow up with a public health engineer at the [facility] at the end of May, or sooner if able, call, to review your ultrasound findings and discuss ongoing care. Print Language: Portuguese Disposition Disposition: Home, Self Care
[2025-05-17] MEDS: 0.9% Normal Saline (1000mL) 1,000 ML 125 ML IV (02:32)
[2025-05-17 02:37] LABS: Hematocrit 35.9 % (37-47); Hemoglobin 11.7 g/dL (12.0-15.0); Immature Granulocytes Count 0.060 X10^3/uL (0.0-0.0); Mean Corp Hgb Conc 32.6 g/dL (32-36); Mean Corpuscular Volume 88.6 fL (81-99); Mean Platelet Vol. 8.3 fl (6.2-12.0); NRBC Flagged by Analyzer 0 % (0-5); Platelet Count 371 K/mm3 (150-450); RBC Distribution Width CV 13.3 % (11.6-14.6); RBC Distribution Width SD 43.3 fl (35.1-43.9); Red Blood Count 4.05 M/mm3 (4.2-5.4); White Blood Count 14.6 K/mm3 (4.4-11.0)
[2025-05-17 02:44] LABS: Internal QC Validated? YES +Cl - CLEAR BKGD; Pregnancy, Serum, hCG Quali. NEGATIVE Negative
[2025-05-17 02:45] LABS: Record Kit Lot#, Serum Preg. 0000964736
[2025-05-17 02:53] LABS: Anion Gap 11 (5-15); BUN 9 mg/dL (4-19); BUN/Creat Ratio 11.4 RATIO (10-20); Calcium,Total 9.5 mg/dL (7.6-11.0); Carbon Dioxide 23.3 mmol/L (21.0-32.0); Chloride 103 mmol/L (98-108); Estimated Creatinine Clearance 115.32 ml/min (50-250); Glucose 113 mg/dL (70-99); Potassium 3.7 mmol/L (3.3-5.1)
[2025-05-17 03:03] LABS: Mucous, Urine 0 SEEN /hpf (<or=2+); Red Blood Cells-Urine 0 SEEN /hpf (0-5); Squamous Epithelial Cells - UA 0 SEEN /hpf (5-10)
[2025-05-17 03:04] LABS: Color, Urine Yellow (Yellow); Glucose, Dipstick Normal (Normal); Ketone-Dipstick Negative (Negative); Leukocyte Esterase-Dipstick Negative /ul (Negative); Nitrite-Dipstick Negative (Negative); Occult Blood-Urine Negative /ul (Negative); Protein-Dipstick 30 mg/dl (Negative); Specific Gravity, Urine 1.020 (1.002-1.030); Urine Bilirubin Dipstick Negative (Negative)
[2025-05-17 03:28] VITALS: BP 102/68; PULSE 74; RESP 16; O2SAT 99
[2025-05-17 05:00] VITALS: BP 98/60; PULSE 77; RESP 16; O2SAT 98
[2025-05-17 07:00] VITALS: BP 107/66; PULSE 77; RESP 14; O2SAT 98
--- NOTE | 2025-05-17 07:32 | ED.RN ---
THIS RN IN TO DC PT. PT EXTREMELY NAUSEATED AND PAIN RETURNING. TALKED WITH DR HORTON. PT TO BE MEDICATED PRIOR TO DC. PT HAS RIDE COMING
[2025-05-17 08:06] VITALS: BP 110/66; PULSE 77; RESP 16; TEMP 36.6; O2SAT 98
== END 2025-05-17 08:07 | disposition home or self-care (01) ==
PROVIDERS: Emergency Provider Emergency Medicine; Visit Provider Emergency Medicine
DX: N80.103 Endometriosis of bilateral ovaries, unspecified depth (principal); M54.9 Dorsalgia, unspecified; J45.909 Unspecified asthma, uncomplicated; Z79.3 Long term (current) use of hormonal contraceptives; Z79.899 Other long term (current) drug therapy; Z87.891 Personal history of nicotine dependence
CPT/HCPCS: 76830; 80048; 81001; 84703; 85025; 96361; 96374; 96375; 96376; 99283; A4216; J2405